=== PATIENT | female | born 1945 | race Caucasian/White ===

== ENCOUNTER 2017-09-11 20:54 | Inpatient (IN) | payer MEDICARE ==
[~2017-09-11] VITALS: Ht 162.6 cm; Wt 67.9 kg
[~2017-09-11 20:54] MED LIST: ASPI-1197 PO; BUSP5TAB3 PO; DONE10TA43 PO; ERGO400T7 PO; FOLI1TAB15 PO; LOSA25TA21 PO; MEMA10TA20 PO; MULT-1203 PO; NICO2GUM35 BC; THIAM100TB PO; TRAZ-144 PO
[2017-09-11 21:27] LABS: BASOPHILS % (AUTO) 0.5 % (0.0-5.0); HEMATOCRIT 24.8 % (36-48); LYMPHOCYTES % (AUTO) 28.2 % (21.0-51.0); MEAN CORPUSCULAR HGB CONC 34.2 g/dL (32.0-36.0); MEAN CORPUSCULAR VOLUME 99.5 fL (79-99); MONOCYTES % (AUTO) 7.3 % (3.0-13.0); PLATELET COUNT (AUTO) 249 K/uL (130-400); RED BLOOD CELL COUNT(AUTO) 2.49 MIL/uL (4.00-5.50); WHITE BLOOD COUNT (AUTO) 8.3 K/uL (4.8-10.8)
[2017-09-11 21:38] LABS: CREATININE 0.7 mg/dL (0.5-1.5); POTASSIUM 3.7 mmol/L (3.5-5.1)
[2017-09-11 21:39] LABS: INR 1.48 (0.85-1.15); PARTIAL THROMBOPLASTIN TIME 33.8 SEC (26.3-35.5); PROTHROMBIN TIME 15.4 SEC (9.6-11.6)
[2017-09-11 21:51] LABS: BILIRUBIN,TOTAL 0.3 mg/dL (0.2-1.0); CREATINE KINASE MB 0.9 ng/mL (0.5-3.6); TOTAL PROTEIN, SERUM 5.9 g/dL (6.0-8.3)
[2017-09-11] MEDS ORDERED: TRAMADOL HCL 50 MG TABLET ONE (23:38)
[2017-09-11] MEDS ORDERED: ASPIRIN 325 MG TABLET ONE (23:38)
[2017-09-11] MEDS ORDERED: VANCOMYCIN 1GM+NS 250ML 250 ML IV ONE (23:42)
[2017-09-11] MEDS ORDERED: ZOSYN 3.375GM+NS 50ML 50 ML IV ONE (23:42)
[2017-09-12] MEDS ORDERED: IPRATROPIUM/ALBUTEROL SULFATE 3 ML SOLUTION IH ONE (01:09)
[2017-09-12] MEDS ORDERED: LORAZEPAM 2 MG/ML 1 ML VIAL IM ONE (03:15)
[2017-09-12] MEDS ORDERED: ZOLPIDEM TARTRATE 5 MG TAB PO PRN (03:15)
[2017-09-12] MEDS ORDERED: ONDANSETRON HCL 4 MG/2 ML VIAL IV PRN (03:15)
[2017-09-12] MEDS ORDERED: METHYLPREDNISOLONE SOD SUCC 125MG/2ML VIAL IV SCH (03:15)
[2017-09-12] MEDS ORDERED: HYDRALAZINE HCL 20 MG/ML VIAL IV PRN (03:15)
[2017-09-12] MEDS: LEVOFLOXACIN 500 MG/D5W 100 ML 100 ML IV SCH (04:00)
[2017-09-12] MEDS ORDERED: METHYLPREDNISOLONE SOD SUCC 40MG/ML 1ML ONE (04:06)
[2017-09-12] MEDS ORDERED: LEVOFLOXACIN 500 MG/D5W 100 ML 100 ML ONE (04:06)
[2017-09-12] MEDS ORDERED: ACETAMINOPHEN-CODEINE 300/30MG TAB ONE (05:24)
[2017-09-12 05:54] LABS: BASOPHILS % (AUTO) 0.5 % (0.0-5.0); EOSINOPHILS % (AUTO) 2.1 % (0.0-8.0); LYMPHOCYTES % (AUTO) 15.5 % (21.0-51.0); MEAN CORPUSCULAR HEMOGLOBIN 33.4 pg (27.0-33.0); MEAN CORPUSCULAR HGB CONC 33.1 g/dL (32.0-36.0); MONOCYTES % (AUTO) 3.9 % (3.0-13.0); PLATELET COUNT (AUTO) 230 K/uL (130-400); RED BLOOD CELL COUNT(AUTO) 2.57 MIL/uL (4.00-5.50); WHITE BLOOD COUNT (AUTO) 7.8 K/uL (4.8-10.8)
[2017-09-12] MEDS ORDERED: IPRATROPIUM/ALBUTEROL SULFATE 3 ML SOLUTION IH SCH (06:00)
[2017-09-12 06:02] LABS: CREATININE 0.7 mg/dL (0.5-1.5); POTASSIUM 3.7 mmol/L (3.5-5.1)
[2017-09-12 07:55] VITALS: BP 125/73
[2017-09-12] MEDS ORDERED: SODIUM CHLORIDE 0.9% 250 ML IV ONE (09:42)
[2017-09-12] MEDS: ZOSYN 3.375GM+NS 50ML 50 ML IV SCH ×2 (09:44→17:13)
[2017-09-12] MEDS: PANTOPRAZOLE SODIUM 40 MG TABLET.DR PO SCH (09:45)
[2017-09-12] MEDS: ENOXAPARIN SODIUM 40 MG/0.4 ML SYRINGE SQ SCH (09:47)
[2017-09-12 11:00] VITALS: BP 113/63
[2017-09-12] MEDS: IPRATROPIUM/ALBUTEROL SULFATE 3 ML SOLUTION IH SCH ×3 (12:00→23:38)
[2017-09-12] MEDS: FLU VACC QS2017-18 36MOS UP/PF 60 MCG/0.5 ML ML IM SCH (12:56)
[2017-09-12] MEDS: TRAMADOL HCL 50 MG TABLET PO PRN ×2 (13:01→18:31)
[2017-09-12 16:00] VITALS: BP 103/62
[2017-09-12] MEDS ORDERED: DILT120T PO (18:56)
[2017-09-12] MEDS ORDERED: [UNRECOGNIZED DRUG - OTHER] PO (18:56)
[2017-09-12] MEDS ORDERED: ATOR40TA69 PO (18:56)
[2017-09-12] MEDS ORDERED: RIVA15TA PO (18:56)
[2017-09-12] MEDS ORDERED: MEMA5TAB15 PO (18:56)
[2017-09-12] MEDS ORDERED: LEVE750T4 PO (18:56)
[2017-09-12] MEDS ORDERED: ALPR0.5T PO (18:56)
[2017-09-12] MEDS ORDERED: OSELT15L PO (18:56)
[2017-09-12] MEDS ORDERED: ACET1TAB25 PO (18:56)
[2017-09-12] MEDS ORDERED: DONE5TAB33 PO (18:56)
[2017-09-12 20:00] VITALS: BP 124/78
[2017-09-13] VITALS: BP 117/66
[2017-09-13] MEDS: LEVOFLOXACIN 500 MG/D5W 100 ML 100 ML IV SCH (01:39)
[2017-09-13] MEDS ORDERED: TRAZODONE HCL 50 MG TAB PO PRN (02:00)
[2017-09-13] MEDS: ZOSYN 3.375GM+NS 50ML 50 ML IV SCH ×3 (02:54→16:30)
[2017-09-13 04:00] VITALS: BP 143/71
[2017-09-13] MEDS: TRAMADOL HCL 50 MG TABLET PO PRN ×3 (04:06→16:29)
[2017-09-13] MEDS: IPRATROPIUM/ALBUTEROL SULFATE 3 ML SOLUTION IH SCH ×4 (04:45→23:18)
[2017-09-13 07:30] VITALS: BP 109/54
[2017-09-13] MEDS: FLU VACC QS2017-18 36MOS UP/PF 60 MCG/0.5 ML ML IM SCH (07:39)
[2017-09-13] MEDS: DILTIAZEM HCL 120 MG CAP.SR.24H PO SCH (08:27)
[2017-09-13] MEDS: THIAMINE HCL 100 MG TABLET PO SCH (08:29)
[2017-09-13] MEDS: PANTOPRAZOLE SODIUM 40 MG TABLET.DR PO SCH (08:29)
[2017-09-13] MEDS: ASPIRIN 81MG TAB.CHEW PO SCH (08:29)
[2017-09-13] MEDS: ENOXAPARIN SODIUM 40 MG/0.4 ML SYRINGE SQ SCH (08:30)
[2017-09-13] MEDS: DONEPEZIL HCL 5 MG TAB PO SCH (08:37)
[2017-09-13] MEDS: MEMANTINE HCL 5 MG TABLET PO SCH ×2 (08:37→21:00)
[2017-09-13] MEDS: LEVETIRACETAM 500 MG TABLET PO SCH ×2 (08:37→21:00)
[2017-09-13] MEDS: OSELTAMIVIR PHOSPHATE 75 MG CAP PO SCH (08:38)
[2017-09-13] MEDS ORDERED: RIVAROXABAN 15 MG TABLET PO SCH (09:00)
[2017-09-13 11:00] VITALS: BP 116/42
[2017-09-13] MEDS: ALPRAZOLAM 0.5 MG TABLET PO PRN (14:51)
[2017-09-13] MEDS: NYSTATIN 15 GM POWDER TP SCH (14:54)
[2017-09-13 16:00] VITALS: BP 138/75
[2017-09-13] MEDS: ACETAMINOPHEN 325 MG TAB PO PRN (18:43)
[2017-09-13] MEDS ORDERED: KETOROLAC TROMETHAMINE 30MG/ML IV SCH (19:30)
[2017-09-13] MEDS: QUETIAPINE FUMARATE 25 MG TAB PO SCH (19:50)
[2017-09-13] MEDS: RIVAROXABAN 15 MG TABLET PO SCH (19:59)
[2017-09-13] MEDS: ATORVASTATIN CALCIUM 40 MG TABLET PO SCH (19:59)
[2017-09-13 20:00] VITALS: BP 151/77
[2017-09-14] VITALS: BP 91/57
[2017-09-14] MEDS: ZOSYN 3.375GM+NS 50ML 50 ML IV SCH ×3 (00:51→17:20)
[2017-09-14] MEDS: LEVOFLOXACIN 500 MG/D5W 100 ML 100 ML IV SCH (03:38)
[2017-09-14 04:00] VITALS: BP 135/71
[2017-09-14] MEDS: TRAMADOL HCL 50 MG TABLET PO PRN ×3 (04:30→20:14)
[2017-09-14] MEDS: IPRATROPIUM/ALBUTEROL SULFATE 3 ML SOLUTION IH SCH ×4 (04:48→22:58)
[2017-09-14 07:30] VITALS: BP_SYST 111; BP_SYST 115; BP_DIAS 65; BP_DIAS 66
[2017-09-14] MEDS: LEVETIRACETAM 500 MG TABLET PO SCH ×2 (08:37→21:00)
[2017-09-14] MEDS: THIAMINE HCL 100 MG TABLET PO SCH (08:38)
[2017-09-14] MEDS: ASPIRIN 81MG TAB.CHEW PO SCH (08:38)
[2017-09-14] MEDS: OSELTAMIVIR PHOSPHATE 75 MG CAP PO SCH (08:38)
[2017-09-14] MEDS: DILTIAZEM HCL 120 MG CAP.SR.24H PO SCH (08:39)
[2017-09-14] MEDS: MEMANTINE HCL 5 MG TABLET PO SCH ×2 (08:39→20:13)
[2017-09-14] MEDS: PANTOPRAZOLE SODIUM 40 MG TABLET.DR PO SCH (08:39)
[2017-09-14] MEDS: ACETAMINOPHEN-CODEINE 300/30MG TAB PO PRN ×2 (08:40→17:29)
[2017-09-14] MEDS: DONEPEZIL HCL 5 MG TAB PO SCH (08:53)
[2017-09-14 11:00] VITALS: BP 109/75
[2017-09-14] MEDS: RIVAROXABAN 15 MG TABLET PO SCH ×2 (11:28→20:13)
[2017-09-14] MEDS: FLU VACC QS2017-18 36MOS UP/PF 60 MCG/0.5 ML ML IM SCH (13:00)
[2017-09-14 16:00] VITALS: BP 115/66
[2017-09-14] MEDS: NYSTATIN 15 GM POWDER TP SCH (17:31)
[2017-09-14 20:00] VITALS: BP 91/57
[2017-09-14] MEDS: QUETIAPINE FUMARATE 25 MG TAB PO SCH (20:13)
[2017-09-14] MEDS: ATORVASTATIN CALCIUM 40 MG TABLET PO SCH (21:00)
[2017-09-15] VITALS (7 sets, daily range): BP systolic 94–142; BP diastolic 57–89
[2017-09-15] MEDS: ZOSYN 3.375GM+NS 50ML 50 ML IV SCH ×3 (00:54→17:14)
[2017-09-15] MEDS: NYSTATIN 15 GM POWDER TP SCH ×3 (00:54→21:03)
[2017-09-15] MEDS: IPRATROPIUM/ALBUTEROL SULFATE 3 ML SOLUTION IH SCH ×3 (04:43→16:29)
[2017-09-15 05:06] LABS: HEMATOCRIT 24.5 % (36-48); MEAN CORPUSCULAR HEMOGLOBIN 31.7 pg (27.0-33.0); MEAN CORPUSCULAR HGB CONC 32.2 g/dL (32.0-36.0); MEAN CORPUSCULAR VOLUME 98.4 fL (79-99); NUCLEATED RED BLOOD CELLS 0.1 % (0.0-0.19); PLATELET COUNT (AUTO) 192 K/uL (130-400); RED BLOOD CELL COUNT(AUTO) 2.49 MIL/uL (4.00-5.50); RED CELL DISTRIBUTION WIDTH 15.7 % (11.0-15.5); WHITE BLOOD COUNT (AUTO) 6.9 K/uL (4.8-10.8)
[2017-09-15] MEDS: LEVOFLOXACIN 500 MG/D5W 100 ML 100 ML IV SCH (05:15)
[2017-09-15] MEDS: TRAMADOL HCL 50 MG TABLET PO PRN ×3 (05:17→17:14)
[2017-09-15 05:22] LABS: CREATININE 0.8 mg/dL (0.5-1.5); POTASSIUM 3.9 mmol/L (3.5-5.1)
[2017-09-15] MEDS: LEVETIRACETAM 500 MG TABLET PO SCH ×3 (08:59→21:03)
[2017-09-15] MEDS: DILTIAZEM HCL 120 MG CAP.SR.24H PO SCH (09:00)
[2017-09-15] MEDS: RIVAROXABAN 15 MG TABLET PO SCH ×2 (09:00→21:02)
[2017-09-15] MEDS: MEMANTINE HCL 5 MG TABLET PO SCH ×3 (09:00→21:00)
[2017-09-15] MEDS: THIAMINE HCL 100 MG TABLET PO SCH (09:00)
[2017-09-15] MEDS: ASPIRIN 81MG TAB.CHEW PO SCH (09:00)
[2017-09-15] MEDS: OSELTAMIVIR PHOSPHATE 75 MG CAP PO SCH (09:00)
[2017-09-15] MEDS: DONEPEZIL HCL 5 MG TAB PO SCH (09:00)
[2017-09-15] MEDS: PANTOPRAZOLE SODIUM 40 MG TABLET.DR PO SCH (09:01)
[2017-09-15] MEDS: ACETAMINOPHEN 325 MG TAB PO PRN (09:01)
[2017-09-15] MEDS: ALPRAZOLAM 0.5 MG TABLET PO PRN (10:58)
[2017-09-15] MEDS: ATORVASTATIN CALCIUM 40 MG TABLET PO SCH (21:02)
[2017-09-15] MEDS: QUETIAPINE FUMARATE 25 MG TAB PO SCH (21:02)
[2017-09-16] MEDS: IPRATROPIUM/ALBUTEROL SULFATE 3 ML SOLUTION IH SCH ×3 (00:44→12:06)
[2017-09-16] MEDS: ZOSYN 3.375GM+NS 50ML 50 ML IV SCH ×2 (01:50→09:35)
[2017-09-16 03:40] VITALS: BP 94/57
[2017-09-16] MEDS: LEVOFLOXACIN 500 MG/D5W 100 ML 100 ML IV SCH (05:50)
[2017-09-16] MEDS: TRAMADOL HCL 50 MG TABLET PO PRN ×2 (06:00→13:51)
[2017-09-16 07:37] VITALS: BP 122/76
[2017-09-16] MEDS: MEMANTINE HCL 5 MG TABLET PO SCH (09:00)
[2017-09-16] MEDS: DONEPEZIL HCL 5 MG TAB PO SCH (09:00)
[2017-09-16] MEDS: LEVETIRACETAM 500 MG TABLET PO SCH (09:00)
[2017-09-16] MEDS: ALPRAZOLAM 0.5 MG TABLET PO PRN (09:35)
[2017-09-16] MEDS: THIAMINE HCL 100 MG TABLET PO SCH (09:36)
[2017-09-16] MEDS: ASPIRIN 81MG TAB.CHEW PO SCH (09:36)
[2017-09-16] MEDS: PANTOPRAZOLE SODIUM 40 MG TABLET.DR PO SCH (09:36)
[2017-09-16] MEDS: OSELTAMIVIR PHOSPHATE 75 MG CAP PO SCH (09:36)
[2017-09-16] MEDS: RIVAROXABAN 15 MG TABLET PO SCH (09:36)
[2017-09-16] MEDS: DILTIAZEM HCL 120 MG CAP.SR.24H PO SCH (09:37)
[2017-09-16] MEDS: FLU VACC QS2017-18 36MOS UP/PF 60 MCG/0.5 ML ML IM SCH (09:45)
[2017-09-16 11:43] VITALS: BP 111/67
[2017-09-16 16:00] VITALS: BP 144/80
[2018-02-17] MEDS ORDERED: ALPR2TAB7 PO (18:02)
[2018-02-17] MEDS ORDERED: VARE1TAB22 PO (18:02)
[2018-02-17] MEDS ORDERED: LORA2TAB2 PO (18:02)
[2018-02-17] MEDS ORDERED: VENL100T4 PO (18:02)
== END 2017-09-16 16:30 | DRG 178 ==
LOC: EDH 20:54 → EDHIP 22:57 → 4AH 09-12 08:27 → 4BH 09-13 18:18
PROVIDERS: ADMIT Family Medicine; ATTEND Family Medicine
DX: J69.0 Pneumonitis due to inhalation of food and vomit (principal); J90 Pleural effusion, not elsewhere classified; G40.909 Epilepsy, unspecified, not intractable, without status epilepticus; F03.90 Unspecified dementia, unspecified severity, without behavioral disturbance, psychotic disturbance, mood disturbance, and anxiety; E78.5 Hyperlipidemia, unspecified; I10 Essential (primary) hypertension; R41.89 Other symptoms and signs involving cognitive functions and awareness; F31.9 Bipolar disorder, unspecified; F41.9 Anxiety disorder, unspecified; R79.1 Abnormal coagulation profile; Z96.642 Presence of left artificial hip joint; Z87.891 Personal history of nicotine dependence; Z88.8 Allergy status to other drugs, medicaments and biological substances; Z91.013 Allergy to seafood
CPT/HCPCS: 36415; 71010; 71045; 78582; 80048; 80053; 82550; 82553; 83874; 83880; 84484; 85025; 85027; 85378; 85610; 85730; 92610; 93005; 93971; 94640; 94664; A9540; A9558; J1650; J1885; J1956; J2543; J2920; J3370; J7030

== ENCOUNTER 2017-09-18 00:07 | Emergency (ER) | payer MEDICARE ==
[~2017-09-18 00:07] MED LIST changes: +ACET1TAB25 PO; +ALPR0.5T PO; +ATOR40TA69 PO; -BUSP5TAB3 PO; +DILT120T PO; -DONE10TA43 PO; +DONE5TAB33 PO; -ERGO400T7 PO; -FOLI1TAB15 PO; +LEVE750T4 PO; -LOSA25TA21 PO; -MEMA10TA20 PO; +MEMA5TAB15 PO; -MULT-1203 PO; -NICO2GUM35 BC; +OSELT15L PO; +RIVA15TA PO; +[UNRECOGNIZED DRUG - OTHER] PO
[2017-09-18] MEDS ORDERED: ONDANSETRON HCL 4 MG/2 ML VIAL ONE (00:23)
[2017-09-18] MEDS ORDERED: MORPHINE SULFATE 2 MG/ML 1ML SYG ONE (00:24)
[2017-09-18 00:35] LABS: BASOPHILS % (AUTO) 0.7 % (0.0-5.0); EOSINOPHILS % (AUTO) 3.7 % (0.0-8.0); HEMATOCRIT 26.1 % (36-48); LYMPHOCYTES % (AUTO) 19.9 % (21.0-51.0); MEAN CORPUSCULAR HEMOGLOBIN 30.9 pg (27.0-33.0); MEAN CORPUSCULAR HGB CONC 31.9 g/dL (32.0-36.0); MEAN CORPUSCULAR VOLUME 96.9 fL (79-99); MONOCYTES % (AUTO) 6.2 % (3.0-13.0); NEUTROPHILS % (AUTO) 69.5 % (40.0-77.0); PLATELET COUNT (AUTO) 278 K/uL (130-400); RED BLOOD CELL COUNT(AUTO) 2.69 MIL/uL (4.00-5.50); RED CELL DISTRIBUTION WIDTH 15.7 % (11.0-15.5); WHITE BLOOD COUNT (AUTO) 8.6 K/uL (4.8-10.8)
[2017-09-18 00:46] LABS: CARBON DIOXIDE 24 mmol/L (21-32); CHLORIDE 107 mmol/L (101-111); CREATININE 0.9 mg/dL (0.5-1.5); GLOMERULAR FILTR. RATE CALC 66 mL/min (>60); GLUCOSE,RANDOM 131 mg/dL (70-105); POTASSIUM 3.5 mmol/L (3.5-5.1); SODIUM SERUM 142 mmol/L (136-145); UREA NITROGEN, BLOOD 12 mg/dL (7-18)
[2017-09-18 01:02] LABS: ALANINE AMINOTRANSFERASE 18 U/L (12-78); ASPARTATE AMINOTRANSFERASE 10 U/L (10-37); BILIRUBIN,TOTAL 0.4 mg/dL (0.2-1.0); CREATINE KINASE MB 0.9 ng/mL (0.5-3.6); CREATINE KINASE, TOTAL 31 U/L (21-232); MYOGLOBIN 31 ng/mL (10-92); TOTAL PROTEIN, SERUM 6.2 g/dL (6.0-8.3); TROPONIN I < 0.04 ng/mL (0.00-0.06)
[2017-09-18] MEDS ORDERED: DIPHENHYDRAMINE HCL 25 MG CAPSULE ONE (02:30)
[2017-09-18] MEDS ORDERED: LORAZEPAM 2 MG/ML 1 ML VIAL ONE (14:45)
[2017-09-18] MEDS ORDERED: HALOPERIDOL LACTATE 5 MG/ML VIAL ONE (14:45)
[2018-02-17] MEDS ORDERED: ALPR2TAB7 PO (18:02)
[2018-02-17] MEDS ORDERED: LORA2TAB2 PO (18:02)
[2018-02-17] MEDS ORDERED: VENL100T4 PO (18:02)
[2018-02-17] MEDS ORDERED: VARE1TAB22 PO (18:02)
== END 2017-09-18 14:55 | disposition home or self-care (01) ==
LOC: EDH 00:07
DX: R07.89 Other chest pain (principal); R06.00 Dyspnea, unspecified; M25.552 Pain in left hip; I10 Essential (primary) hypertension; E78.5 Hyperlipidemia, unspecified; F19.10 Other psychoactive substance abuse, uncomplicated; Z88.8 Allergy status to other drugs, medicaments and biological substances; Z98.890 Other specified postprocedural states; Z91.041 Radiographic dye allergy status; Z91.013 Allergy to seafood; Z95.0 Presence of cardiac pacemaker
CPT/HCPCS: 36415; 71045; 73502; 80053; 82550; 82553; 83874; 84484 ×2; 85025; 93005 ×2; 96374; 96375; 99291; J2405; Q0163; J1630; J2060

== ENCOUNTER 2017-10-07 14:46 | Inpatient (IN) | payer MEDICARE ==
[~2017-10-07] VITALS: Ht 162.6 cm; Wt 66.6 kg
[2017-10-07 15:14] LABS: BASOPHILS % (AUTO) 0.5 % (0.0-5.0); EOSINOPHILS % (AUTO) 2.8 % (0.0-8.0); HEMATOCRIT 23.7 % (36-48); LYMPHOCYTES % (AUTO) 24.6 % (21.0-51.0); MEAN CORPUSCULAR HEMOGLOBIN 28.8 pg (27.0-33.0); MEAN CORPUSCULAR HGB CONC 31.9 g/dL (32.0-36.0); MEAN CORPUSCULAR VOLUME 90.4 fL (79-99); NEUTROPHILS % (AUTO) 64.1 % (40.0-77.0); PLATELET COUNT (AUTO) 263 K/uL (130-400); RED BLOOD CELL COUNT(AUTO) 2.62 MIL/uL (4.00-5.50); RED CELL DISTRIBUTION WIDTH 17.2 % (11.0-15.5); WHITE BLOOD COUNT (AUTO) 6.8 K/uL (4.8-10.8)
[2017-10-07] MEDS ORDERED: IPRATROPIUM/ALBUTEROL SULFATE 3 ML SOLUTION IH ONE (15:19)
[2017-10-07 15:24] LABS: CREATININE 0.7 mg/dL (0.5-1.5); POTASSIUM 3.8 mmol/L (3.5-5.1)
[2017-10-07 15:37] LABS: ALBUMIN 3.4 g/dL (3.5-5.0); BILIRUBIN,TOTAL 0.3 mg/dL (0.2-1.0); TOTAL PROTEIN, SERUM 6.2 g/dL (6.0-8.3)
[2017-10-07 16:08] LABS: CREATINE KINASE MB 1.1 ng/mL (0.5-3.6)
[2017-10-07] MEDS ORDERED: HYDROCODONE/ACETAMINOPHEN 10/325 MG TAB ONE (16:18)
[2017-10-07] MEDS ORDERED: FUROSEMIDE 10 MG/ML 4ML VIAL ONE (19:55)
[2017-10-07 20:28] LABS: APPEARANCE,URINE Clear (CLEAR); BILIRUBIN,URINE Negative (NEGATIVE); COLOR,URINE Yellow (YELLOW); GLUCOSE, URINE (UA) Negative (NEGATIVE); KETONES,URINE Negative (NEGATIVE); LEUKOCYTE ESTERASE ,URINE Trace (NEGATIVE); NITRATE,URINE Negative (NEGATIVE); OCCULT BLOOD,URINE Negative (NEGATIVE); PROTEIN,URINE Negative (NEGATIVE); UROBILINOGEN,URINE 0.2 mg/dL (0.2-1.0)
[2017-10-07 20:38] LABS: BACTERIA,URINE Rare /HPF (None Seen); RBC,URINE 0-1 /HPF (0-1); SQUAMOUS EPITHELIAL CELL,UR Few /LPF (0-2)
[2017-10-07] MEDS ORDERED: LORAZEPAM 2 MG/ML 1 ML VIAL IM ONE (23:00)
[2017-10-07] MEDS ORDERED: ACETAMINOPHEN 325 MG TAB PO PRN (23:00)
[2017-10-07] MEDS ORDERED: HYDRALAZINE HCL 20 MG/ML VIAL IV PRN (23:00)
[2017-10-07] MEDS ORDERED: ONDANSETRON HCL 4 MG/2 ML VIAL IV PRN (23:00)
[2017-10-07] MEDS ORDERED: ZOLPIDEM TARTRATE 5 MG TAB PO PRN (23:00)
[2017-10-07] MEDS ORDERED: LORAZEPAM 2 MG/ML 1 ML VIAL ONE (23:17)
[2017-10-08 01:00] VITALS: BP 155/75
[2017-10-08] MEDS: IPRATROPIUM/ALBUTEROL SULFATE 3 ML SOLUTION IH SCH ×6 (03:16→22:08)
[2017-10-08 04:00] VITALS: BP 122/53
[2017-10-08 05:10] LABS: BASOPHILS % (AUTO) 0.8 % (0.0-5.0); EOSINOPHILS % (AUTO) 4.6 % (0.0-8.0); HEMATOCRIT 21.2 % (36-48); LYMPHOCYTES % (AUTO) 31.2 % (21.0-51.0); MEAN CORPUSCULAR HEMOGLOBIN 29.5 pg (27.0-33.0); MEAN CORPUSCULAR HGB CONC 32.9 g/dL (32.0-36.0); MEAN CORPUSCULAR VOLUME 89.6 fL (79-99); MONOCYTES % (AUTO) 10.6 % (3.0-13.0); NEUTROPHILS % (AUTO) 52.8 % (40.0-77.0); PLATELET COUNT (AUTO) 230 K/uL (130-400); RED BLOOD CELL COUNT(AUTO) 2.36 MIL/uL (4.00-5.50); RED CELL DISTRIBUTION WIDTH 17.2 % (11.0-15.5); WHITE BLOOD COUNT (AUTO) 5.4 K/uL (4.8-10.8)
[2017-10-08 05:22] LABS: CREATININE 0.6 mg/dL (0.5-1.5); POTASSIUM 3.3 mmol/L (3.5-5.1)
[2017-10-08 05:33] LABS: B-TYPE NATRIURETIC PEPTIDE 98 pg/mL (0-100)
[2017-10-08 08:00] VITALS: BP 125/69
[2017-10-08] MEDS: THIAMINE HCL 100 MG TABLET PO SCH (08:45)
[2017-10-08] MEDS: DONEPEZIL HCL 5 MG TAB PO SCH (08:46)
[2017-10-08] MEDS: DILTIAZEM HCL 120 MG CAP.SR.24H PO SCH (08:46)
[2017-10-08] MEDS: MEMANTINE HCL 5 MG TABLET PO SCH ×2 (08:46→20:16)
[2017-10-08] MEDS: FAMOTIDINE 20MG TAB 20 MG TAB PO SCH ×2 (08:46→20:16)
[2017-10-08] MEDS: ACETAMINOPHEN-CODEINE 300/30MG TAB PO PRN (08:46)
[2017-10-08] MEDS: LEVETIRACETAM 250 MG TABLET PO SCH ×2 (08:47→20:15)
[2017-10-08] MEDS: ALPRAZOLAM 0.5 MG TABLET PO PRN (08:49)
[2017-10-08] MEDS ORDERED: RIVAROXABAN 15 MG TABLET PO SCH (09:00)
[2017-10-08] MEDS ORDERED: ASPIRIN 81MG TAB.CHEW PO SCH (09:00)
[2017-10-08] MEDS ORDERED: POTASSIUM CHLORIDE 20MEQ/100ML 100 ML IV PRN (10:15)
[2017-10-08] MEDS ORDERED: LIDOCAINE HCL-MPF 1% 2ML VIAL IVP PRN (10:15)
[2017-10-08] MEDS ORDERED: POTASSIUM CHLORIDE 10% ELIXIR 20 MEQ/15 ML UDCUP PO PRN (10:15)
[2017-10-08] MEDS ORDERED: LORAZEPAM 2 MG/ML 1 ML VIAL IM PRN (10:15)
[2017-10-08] MEDS: LORAZEPAM 2 MG/ML 1 ML VIAL IVP PRN ×2 (11:12→22:24)
[2017-10-08 11:18] VITALS: BP 129/63
[2017-10-08] MEDS ORDERED: SODIUM CHLORIDE 0.9% 250 ML IV ONE (14:30)
[2017-10-08 16:00] VITALS: BP 112/54
[2017-10-08] MEDS: POTASSIUM CHLORIDE 20 MEQ ERTAB PO PRN ×3 (18:24→22:23)
[2017-10-08 19:57] VITALS: BP 133/69
[2017-10-08] MEDS: ATORVASTATIN CALCIUM 40 MG TABLET PO SCH (20:15)
[2017-10-08] MEDS: TRAZODONE HCL 50 MG TAB PO PRN (20:15)
[2017-10-09] MEDS: IPRATROPIUM/ALBUTEROL SULFATE 3 ML SOLUTION IH SCH ×6 (01:35→22:02)
[2017-10-09 05:26] LABS: HEMATOCRIT 24.2 % (36-48); MEAN CORPUSCULAR HEMOGLOBIN 27.2 pg (27.0-33.0); MEAN CORPUSCULAR HGB CONC 31.4 g/dL (32.0-36.0); MEAN CORPUSCULAR VOLUME 86.7 fL (79-99); PLATELET COUNT (AUTO) 234 K/uL (130-400); RED CELL DISTRIBUTION WIDTH 18.8 % (11.0-15.5); WHITE BLOOD COUNT (AUTO) 7.2 K/uL (4.8-10.8)
[2017-10-09 05:38] LABS: CREATININE 0.6 mg/dL (0.5-1.5); POTASSIUM 4.2 mmol/L (3.5-5.1)
[2017-10-09 06:19] VITALS: BP 116/57
[2017-10-09 07:30] VITALS: BP 131/74
[2017-10-09] MEDS: MEMANTINE HCL 5 MG TABLET PO SCH ×2 (08:36→22:39)
[2017-10-09] MEDS: LORAZEPAM 2 MG/ML 1 ML VIAL IVP PRN ×2 (08:36→17:19)
[2017-10-09] MEDS: FAMOTIDINE 20MG TAB 20 MG TAB PO SCH ×2 (08:36→22:39)
[2017-10-09] MEDS: DONEPEZIL HCL 5 MG TAB PO SCH (08:36)
[2017-10-09] MEDS: LEVETIRACETAM 250 MG TABLET PO SCH ×2 (08:36→22:39)
[2017-10-09] MEDS: THIAMINE HCL 100 MG TABLET PO SCH (08:36)
[2017-10-09] MEDS: DILTIAZEM HCL 120 MG CAP.SR.24H PO SCH (08:37)
[2017-10-09] MEDS: ACETAMINOPHEN-CODEINE 300/30MG TAB PO PRN (10:56)
[2017-10-09] MEDS: CYANOCOBALAMIN (VITAMIN B-12) 100 MCG TABLET PO SCH (10:56)
[2017-10-09] MEDS: ALPRAZOLAM 0.5 MG TABLET PO PRN (15:33)
[2017-10-09 16:00] VITALS: BP 111/55
[2017-10-09 20:00] VITALS: BP 101/59
[2017-10-09] MEDS: ATORVASTATIN CALCIUM 40 MG TABLET PO SCH (22:39)
[2017-10-09 23:44] VITALS: BP_SYST 118; BP_SYST 174; BP_DIAS 58; BP_DIAS 72
[2017-10-10] VITALS (21 sets, daily range): BP systolic 102–172; BP diastolic 58–87
[2017-10-10] MEDS: LORAZEPAM 2 MG/ML 1 ML VIAL IVP PRN ×3 (01:16→18:29)
[2017-10-10] MEDS: IPRATROPIUM/ALBUTEROL SULFATE 3 ML SOLUTION IH SCH ×6 (01:44→22:42)
[2017-10-10] MEDS: ACETAMINOPHEN-CODEINE 300/30MG TAB PO PRN ×2 (06:29→12:30)
[2017-10-10] MEDS: CYANOCOBALAMIN (VITAMIN B-12) 100 MCG TABLET PO SCH (09:00)
[2017-10-10] MEDS: DONEPEZIL HCL 5 MG TAB PO SCH (09:01)
[2017-10-10] MEDS: CYANOCOBALAMIN (VITAMIN B-12) 1000 MCG/ML 1ML VIAL IM SCH (09:01)
[2017-10-10] MEDS: FAMOTIDINE 20MG TAB 20 MG TAB PO SCH ×2 (09:01→20:28)
[2017-10-10] MEDS: LEVETIRACETAM 250 MG TABLET PO SCH ×2 (09:01→20:28)
[2017-10-10] MEDS: THIAMINE HCL 100 MG TABLET PO SCH (09:01)
[2017-10-10] MEDS: DILTIAZEM HCL 120 MG CAP.SR.24H PO SCH (09:01)
[2017-10-10] MEDS: MEMANTINE HCL 5 MG TABLET PO SCH ×2 (09:01→20:27)
[2017-10-10 10:24] LABS: BASOPHILS % (AUTO) 0.6 % (0.0-5.0); EOSINOPHILS % (AUTO) 5.1 % (0.0-8.0); HEMATOCRIT 25.2 % (36-48); LYMPHOCYTES % (AUTO) 21.3 % (21.0-51.0); MEAN CORPUSCULAR HEMOGLOBIN 28.3 pg (27.0-33.0); MEAN CORPUSCULAR HGB CONC 32.4 g/dL (32.0-36.0); MEAN CORPUSCULAR VOLUME 87.3 fL (79-99); MONOCYTES % (AUTO) 8.2 % (3.0-13.0); NEUTROPHILS % (AUTO) 64.8 % (40.0-77.0); PLATELET COUNT (AUTO) 243 K/uL (130-400); RED BLOOD CELL COUNT(AUTO) 2.89 MIL/uL (4.00-5.50); RED CELL DISTRIBUTION WIDTH 18.6 % (11.0-15.5); WHITE BLOOD COUNT (AUTO) 7.7 K/uL (4.8-10.8)
[2017-10-10 10:29] LABS: CREATININE 0.7 mg/dL (0.5-1.5); POTASSIUM 4.5 mmol/L (3.5-5.1)
[2017-10-10] MEDS: MORPHINE SULFATE 2 MG/ML 1ML SYG IVP PRN (13:06)
[2017-10-10] MEDS ORDERED: GLYCOPYRROLATE 0.2 MG/ML 5 ML VIAL ONE (14:49)
[2017-10-10] MEDS ORDERED: FENTANYL CITRATE PF 50 MCG/1 ML 2ML VIAL ONE (14:49)
[2017-10-10] MEDS ORDERED: PROPOFOL 10 MG/ML 20ML VIAL IV ONE (14:49)
[2017-10-10] MEDS ORDERED: BISACODYL 5 MG TABLET.DR PO SCH (16:00)
[2017-10-10] MEDS ORDERED: MAGNESIUM CITRATE 296 ML SOLUTION PO SCH (16:00)
[2017-10-10] MEDS ORDERED: PEG 3350/NA SULF,BICARB,CL/KCL 4000 ML SOLN PO SCH (16:00)
[2017-10-10] MEDS ORDERED: LACTULOSE 20 GM/30 ML UDCUP PO SCH (16:30)
[2017-10-10] MEDS: ATORVASTATIN CALCIUM 40 MG TABLET PO SCH (20:27)
[2017-10-10] MEDS: TRAZODONE HCL 50 MG TAB PO PRN (21:53)
[2017-10-11] VITALS (18 sets, daily range): BP systolic 91–145; BP diastolic 44–83
[2017-10-11] MEDS: IPRATROPIUM/ALBUTEROL SULFATE 3 ML SOLUTION IH SCH ×6 (02:15→23:04)
[2017-10-11] MEDS: LORAZEPAM 2 MG/ML 1 ML VIAL IVP PRN ×2 (02:47→12:52)
[2017-10-11 05:23] LABS: BASOPHILS % (AUTO) 0.7 % (0.0-5.0); HEMATOCRIT 26.5 % (36-48); LYMPHOCYTES % (AUTO) 18.5 % (21.0-51.0); MEAN CORPUSCULAR HEMOGLOBIN 27.4 pg (27.0-33.0); MEAN CORPUSCULAR HGB CONC 31.8 g/dL (32.0-36.0); MEAN CORPUSCULAR VOLUME 86.1 fL (79-99); MONOCYTES % (AUTO) 8.5 % (3.0-13.0); NEUTROPHILS % (AUTO) 67.3 % (40.0-77.0); PLATELET COUNT (AUTO) 267 K/uL (130-400); RED BLOOD CELL COUNT(AUTO) 3.08 MIL/uL (4.00-5.50); RED CELL DISTRIBUTION WIDTH 18.6 % (11.0-15.5); WHITE BLOOD COUNT (AUTO) 8.7 K/uL (4.8-10.8)
[2017-10-11 05:30] LABS: CREATININE 0.7 mg/dL (0.5-1.5); POTASSIUM 3.5 mmol/L (3.5-5.1)
[2017-10-11] MEDS: MORPHINE SULFATE 2 MG/ML 1ML SYG IVP PRN (06:25)
[2017-10-11] MEDS: CYANOCOBALAMIN (VITAMIN B-12) 100 MCG TABLET PO SCH (09:00)
[2017-10-11] MEDS: MEMANTINE HCL 5 MG TABLET PO SCH ×2 (09:00→22:03)
[2017-10-11] MEDS: LEVETIRACETAM 250 MG TABLET PO SCH ×2 (09:00→22:03)
[2017-10-11] MEDS: CYANOCOBALAMIN (VITAMIN B-12) 1000 MCG/ML 1ML VIAL IM SCH (09:00)
[2017-10-11] MEDS: DONEPEZIL HCL 5 MG TAB PO SCH (09:00)
[2017-10-11] MEDS: DILTIAZEM HCL 120 MG CAP.SR.24H PO SCH (09:00)
[2017-10-11] MEDS: THIAMINE HCL 100 MG TABLET PO SCH (09:00)
[2017-10-11] MEDS: FAMOTIDINE 20MG TAB 20 MG TAB PO SCH ×2 (09:00→22:03)
[2017-10-11] MEDS: PANTOPRAZOLE SODIUM 40 MG TABLET.DR PO SCH (09:00)
[2017-10-11] MEDS ORDERED: PROPOFOL 10 MG/ML 20ML VIAL IV ONE (11:23)
[2017-10-11] MEDS ORDERED: TEMAZEPAM 30 MG CAP PO PRN (12:30)
[2017-10-11] MEDS: ALPRAZOLAM 0.5 MG TABLET PO PRN (16:22)
[2017-10-11] MEDS: ATORVASTATIN CALCIUM 40 MG TABLET PO SCH (22:03)
[2017-10-11] MEDS: ALPRAZOLAM 0.5 MG TABLET PO SCH (22:03)
[2017-10-11] MEDS: ACETAMINOPHEN-CODEINE 300/30MG TAB PO PRN (22:07)
[2017-10-12] MEDS: MORPHINE SULFATE 2 MG/ML 1ML SYG IVP PRN ×4 (00:09→21:59)
[2017-10-12 00:10] VITALS: BP 143/77
[2017-10-12] MEDS: IPRATROPIUM/ALBUTEROL SULFATE 3 ML SOLUTION IH SCH ×6 (02:10→21:43)
[2017-10-12 04:05] VITALS: BP 126/74
[2017-10-12] MEDS ORDERED: TRAZODONE HCL 50 MG TAB PO PRN (09:45)
[2017-10-12] MEDS: MEMANTINE HCL 5 MG TABLET PO SCH ×2 (09:49→20:39)
[2017-10-12] MEDS: CYANOCOBALAMIN (VITAMIN B-12) 100 MCG TABLET PO SCH (09:49)
[2017-10-12] MEDS: THIAMINE HCL 100 MG TABLET PO SCH (09:49)
[2017-10-12] MEDS: LEVETIRACETAM 250 MG TABLET PO SCH ×2 (09:49→20:39)
[2017-10-12] MEDS: ALPRAZOLAM 0.5 MG TABLET PO SCH ×2 (09:49→20:39)
[2017-10-12] MEDS: PANTOPRAZOLE SODIUM 40 MG TABLET.DR PO SCH (09:49)
[2017-10-12] MEDS: FAMOTIDINE 20MG TAB 20 MG TAB PO SCH ×2 (09:50→20:39)
[2017-10-12] MEDS: CYANOCOBALAMIN (VITAMIN B-12) 1000 MCG/ML 1ML VIAL IM SCH (09:50)
[2017-10-12] MEDS: DILTIAZEM HCL 120 MG CAP.SR.24H PO SCH (09:50)
[2017-10-12] MEDS: DONEPEZIL HCL 5 MG TAB PO SCH (09:51)
[2017-10-12] MEDS ORDERED: TRAZODONE HCL 100 MG TABLET PO PRN (10:15)
[2017-10-12 10:58] VITALS: BP 93/54
[2017-10-12] MEDS: LORAZEPAM 2 MG/ML 1 ML VIAL IVP PRN (12:51)
[2017-10-12 16:12] VITALS: BP 97/68
[2017-10-12] MEDS: ACETAMINOPHEN-CODEINE 300/30MG TAB PO PRN (18:21)
[2017-10-12 19:00] VITALS: BP 100/63
[2017-10-12] MEDS: DULOXETINE HCL 30 MG CAP PO SCH (20:39)
[2017-10-12] MEDS: ATORVASTATIN CALCIUM 40 MG TABLET PO SCH (20:39)
[2017-10-12 23:00] VITALS: BP 105/55
[2017-10-13 03:00] VITALS: BP 118/62
[2017-10-13] MEDS: IPRATROPIUM/ALBUTEROL SULFATE 3 ML SOLUTION IH SCH ×6 (03:02→22:54)
[2017-10-13] MEDS: ACETAMINOPHEN-CODEINE 300/30MG TAB PO PRN (03:22)
[2017-10-13 05:17] LABS: BASOPHILS % (AUTO) 1.3 % (0.0-5.0); EOSINOPHILS % (AUTO) 6.5 % (0.0-8.0); HEMATOCRIT 26.6 % (36-48); LYMPHOCYTES % (AUTO) 30.7 % (21.0-51.0); MEAN CORPUSCULAR HEMOGLOBIN 27.6 pg (27.0-33.0); MEAN CORPUSCULAR VOLUME 86.2 fL (79-99); MONOCYTES % (AUTO) 8.5 % (3.0-13.0); PLATELET COUNT (AUTO) 285 K/uL (130-400); RED BLOOD CELL COUNT(AUTO) 3.09 MIL/uL (4.00-5.50); RED CELL DISTRIBUTION WIDTH 18.1 % (11.0-15.5); WHITE BLOOD COUNT (AUTO) 7.3 K/uL (4.8-10.8)
[2017-10-13] MEDS: MORPHINE SULFATE 2 MG/ML 1ML SYG IVP PRN ×3 (05:49→22:11)
[2017-10-13 06:06] LABS: CREATININE 0.7 mg/dL (0.5-1.5); POTASSIUM 4.2 mmol/L (3.5-5.1)
[2017-10-13 07:23] VITALS: BP 97/67
[2017-10-13] MEDS: DILTIAZEM HCL 120 MG CAP.SR.24H PO SCH ×2 (09:00→10:15)
[2017-10-13] MEDS: PANTOPRAZOLE SODIUM 40 MG TABLET.DR PO SCH (10:14)
[2017-10-13] MEDS: FAMOTIDINE 20MG TAB 20 MG TAB PO SCH ×2 (10:14→20:30)
[2017-10-13] MEDS: LEVETIRACETAM 250 MG TABLET PO SCH ×2 (10:14→20:29)
[2017-10-13] MEDS: MEMANTINE HCL 5 MG TABLET PO SCH ×2 (10:14→20:30)
[2017-10-13] MEDS: CYANOCOBALAMIN (VITAMIN B-12) 100 MCG TABLET PO SCH (10:14)
[2017-10-13] MEDS: ALPRAZOLAM 0.5 MG TABLET PO SCH ×2 (10:14→20:30)
[2017-10-13] MEDS: DULOXETINE HCL 30 MG CAP PO SCH ×2 (10:15→20:30)
[2017-10-13] MEDS: THIAMINE HCL 100 MG TABLET PO SCH (10:15)
[2017-10-13] MEDS: DONEPEZIL HCL 5 MG TAB PO SCH (10:15)
[2017-10-13] MEDS: CYANOCOBALAMIN (VITAMIN B-12) 1000 MCG/ML 1ML VIAL IM SCH (10:16)
[2017-10-13 10:46] VITALS: BP 97/67
[2017-10-13 15:35] VITALS: BP 100/51
[2017-10-13 19:00] VITALS: BP 130/54
[2017-10-13] MEDS: ATORVASTATIN CALCIUM 40 MG TABLET PO SCH (20:30)
[2017-10-13 23:00] VITALS: BP 147/82
[2017-10-14] MEDS: IPRATROPIUM/ALBUTEROL SULFATE 3 ML SOLUTION IH SCH ×3 (02:42→10:00)
[2017-10-14 03:00] VITALS: BP 138/72
[2017-10-14 04:02] LABS: BASOPHILS % (AUTO) 1.1 % (0.0-5.0); EOSINOPHILS % (AUTO) 6.7 % (0.0-8.0); LYMPHOCYTES % (AUTO) 31.9 % (21.0-51.0); MEAN CORPUSCULAR HEMOGLOBIN 27.2 pg (27.0-33.0); MEAN CORPUSCULAR HGB CONC 31.6 g/dL (32.0-36.0); MONOCYTES % (AUTO) 8.6 % (3.0-13.0); NEUTROPHILS % (AUTO) 51.7 % (40.0-77.0); PLATELET COUNT (AUTO) 275 K/uL (130-400); RED BLOOD CELL COUNT(AUTO) 3.14 MIL/uL (4.00-5.50); RED CELL DISTRIBUTION WIDTH 17.8 % (11.0-15.5); WHITE BLOOD COUNT (AUTO) 7.5 K/uL (4.8-10.8)
[2017-10-14 04:18] LABS: CREATININE 0.6 mg/dL (0.5-1.5); POTASSIUM 4.1 mmol/L (3.5-5.1)
[2017-10-14] MEDS: MORPHINE SULFATE 2 MG/ML 1ML SYG IVP PRN ×2 (05:27→11:57)
[2017-10-14 08:00] VITALS: BP 103/63
[2017-10-14] MEDS: LEVETIRACETAM 250 MG TABLET PO SCH (10:01)
[2017-10-14] MEDS: CYANOCOBALAMIN (VITAMIN B-12) 100 MCG TABLET PO SCH (10:01)
[2017-10-14] MEDS: MEMANTINE HCL 5 MG TABLET PO SCH (10:01)
[2017-10-14] MEDS: ALPRAZOLAM 0.5 MG TABLET PO SCH (10:01)
[2017-10-14] MEDS: DONEPEZIL HCL 5 MG TAB PO SCH (10:01)
[2017-10-14] MEDS: THIAMINE HCL 100 MG TABLET PO SCH (10:01)
[2017-10-14] MEDS: PANTOPRAZOLE SODIUM 40 MG TABLET.DR PO SCH (10:01)
[2017-10-14] MEDS: FAMOTIDINE 20MG TAB 20 MG TAB PO SCH (10:01)
[2017-10-14] MEDS: DULOXETINE HCL 30 MG CAP PO SCH (10:01)
[2017-10-14] MEDS: DILTIAZEM HCL 120 MG CAP.SR.24H PO SCH (10:05)
[2017-10-14] MEDS: ACETAMINOPHEN-CODEINE 300/30MG TAB PO PRN (10:11)
[2017-10-14] MEDS: CYANOCOBALAMIN (VITAMIN B-12) 1000 MCG/ML 1ML VIAL IM SCH (10:11)
[2017-10-14 11:54] VITALS: BP 111/73
[2018-02-17] MEDS ORDERED: VARE1TAB22 PO (18:02)
[2018-02-17] MEDS ORDERED: LORA2TAB2 PO (18:02)
[2018-02-17] MEDS ORDERED: VENL100T4 PO (18:02)
[2018-02-17] MEDS ORDERED: ALPR2TAB7 PO (18:02)
== END 2017-10-14 17:40 | DRG 812 ==
LOC: EDH 14:46 → EDHIP 19:37 → 4CH 23:43
PROVIDERS: ADMIT Family Medicine; ATTEND Family Medicine
PROC: 30233N1 Transfusion of Nonautologous Red Blood Cells into Peripheral Vein, Percutaneous Approach (ICD-10-PCS; principal; 2017-10-07)
PROC: 0DBP8ZX Excision of Rectum, Via Natural or Artificial Opening Endoscopic, Diagnostic (ICD-10-PCS; 2017-10-07)
PROC: 0DB98ZX Excision of Duodenum, Via Natural or Artificial Opening Endoscopic, Diagnostic (ICD-10-PCS; 2017-10-10)
PROC: 0DB68ZX Excision of Stomach, Via Natural or Artificial Opening Endoscopic, Diagnostic (ICD-10-PCS; 2017-10-10)
PROC: 0DB58ZX Excision of Esophagus, Via Natural or Artificial Opening Endoscopic, Diagnostic (ICD-10-PCS; 2017-10-10)
DX: D53.9 Nutritional anemia, unspecified (principal); I11.0 Hypertensive heart disease with heart failure; D75.89 Other specified diseases of blood and blood-forming organs; I50.9 Heart failure, unspecified; D50.9 Iron deficiency anemia, unspecified; F19.10 Other psychoactive substance abuse, uncomplicated; E78.5 Hyperlipidemia, unspecified; F03.90 Unspecified dementia, unspecified severity, without behavioral disturbance, psychotic disturbance, mood disturbance, and anxiety; F31.9 Bipolar disorder, unspecified; F41.1 Generalized anxiety disorder; F60.7 Dependent personality disorder; G40.909 Epilepsy, unspecified, not intractable, without status epilepticus; G89.29 Other chronic pain; I25.10 Atherosclerotic heart disease of native coronary artery without angina pectoris; K57.30 Diverticulosis of large intestine without perforation or abscess without bleeding; K64.8 Other hemorrhoids; K29.00 Acute gastritis without bleeding; K21.0 Gastro-esophageal reflux disease with esophagitis; R19.5 Other fecal abnormalities; Z96.659 Presence of unspecified artificial knee joint; Z87.891 Personal history of nicotine dependence; Z88.8 Allergy status to other drugs, medicaments and biological substances; Z91.013 Allergy to seafood
CPT/HCPCS: 36415; 36430; 71045; 71250; 78580; 80048; 80053; 81001; 82270; 82550; 82553; 82746; 83880; 84132; 84484; 85025; 85027; 85378; 86677; 86850; 86900; 86901; 86922; 87633; 88305; 88312; 93005; 93306; 93971; 94640; 94664; 99291; A9540; J0360; J1940; J2060; J2704; J3010; J3420; J3480; J3490; J7030; P9016

== ENCOUNTER 2018-02-17 13:58 | Observation (INO) | payer OTHER, MEDICARE ==
[~2018-02-17] VITALS: Ht 162.6 cm; Wt 69.8 kg
[~2018-02-17 13:58] MED LIST changes: -TRAZ-144 PO; +TRAZ-185 PO
[2018-02-17 14:29] LABS: BASOPHILS % (AUTO) 0.6 % (0.0-5.0); CREATININE 0.7 mg/dL (0.5-1.5); EOSINOPHILS % (AUTO) 3.9 % (0.0-8.0); HEMATOCRIT 37.5 % (36-48); LYMPHOCYTES % (AUTO) 28.1 % (21.0-51.0); MEAN CORPUSCULAR HEMOGLOBIN 28.1 pg (27.0-33.0); MEAN CORPUSCULAR HGB CONC 32.9 g/dL (32.0-36.0); MEAN CORPUSCULAR VOLUME 85.5 fL (79-99); MONOCYTES % (AUTO) 6.4 % (3.0-13.0); PLATELET COUNT (AUTO) 217 K/uL (130-400); POTASSIUM 3.5 mmol/L (3.5-5.1); RED BLOOD CELL COUNT(AUTO) 4.39 MIL/uL (4.00-5.50); RED CELL DISTRIBUTION WIDTH 18.8 % (11.0-15.5); WHITE BLOOD COUNT (AUTO) 7.6 K/uL (4.8-10.8)
[2018-02-17 14:33] LABS: ALBUMIN 3.5 g/dL (3.5-5.0); BILIRUBIN,TOTAL 0.5 mg/dL (0.2-1.0); TOTAL PROTEIN, SERUM 6.2 g/dL (6.0-8.3)
[2018-02-17 17:55] VITALS: BP 153/81
[2018-02-17] MEDS ORDERED: ALPR2TAB7 PO ×2 (18:02)
[2018-02-17] MEDS ORDERED: VENL100T4 PO ×2 (18:02)
[2018-02-17] MEDS ORDERED: VARE1TAB22 PO ×2 (18:02)
[2018-02-17] MEDS ORDERED: LORA2TAB2 PO ×2 (18:02)
[2018-02-17 18:43] LABS: CREATINE KINASE MB 0.9 ng/mL (0.5-3.6); CREATINE KINASE, TOTAL 51 U/L (21-232); MYOGLOBIN 38 ng/mL (10-92); TROPONIN I < 0.04 ng/mL (0.00-0.06)
[2018-02-17 20:00] VITALS: BP 153/89
[2018-02-17] MEDS ORDERED: SODIUM CHLORIDE 0.9% 10 ML VIAL IVP PRN (20:15)
[2018-02-17] MEDS: CHANTIX 1MG PO SCH (21:00)
[2018-02-17] MEDS ORDERED: LORAZEPAM 1 MG TABLET PO SCH (21:00)
[2018-02-17] MEDS ORDERED: ALPRAZOLAM 1 MG TAB PO SCH (21:00)
[2018-02-17] MEDS: APIXABAN 5 MG TABLET PO SCH (21:43)
[2018-02-17 22:33] LABS: CREATINE KINASE MB 0.8 ng/mL (0.5-3.6); CREATINE KINASE, TOTAL 44 U/L (21-232); MYOGLOBIN 30 ng/mL (10-92); TROPONIN I < 0.04 ng/mL (0.00-0.06)
[2018-02-18] VITALS: BP 149/73
[2018-02-18 04:00] VITALS: BP 139/87
[2018-02-18 04:50] LABS: HEMATOCRIT 35.7 % (36-48); MEAN CORPUSCULAR HEMOGLOBIN 28.2 pg (27.0-33.0); MEAN CORPUSCULAR HGB CONC 32.9 g/dL (32.0-36.0); MEAN CORPUSCULAR VOLUME 85.5 fL (79-99); NUCLEATED RED BLOOD CELLS 0.1 % (0.0-0.19); PLATELET COUNT (AUTO) 195 K/uL (130-400); RED BLOOD CELL COUNT(AUTO) 4.18 MIL/uL (4.00-5.50); RED CELL DISTRIBUTION WIDTH 18.6 % (11.0-15.5); WHITE BLOOD COUNT (AUTO) 7.6 K/uL (4.8-10.8)
[2018-02-18 05:00] LABS: ALBUMIN 3.2 g/dL (3.5-5.0); BILIRUBIN,TOTAL 0.4 mg/dL (0.2-1.0); CREATININE 0.6 mg/dL (0.5-1.5); POTASSIUM 3.2 mmol/L (3.5-5.1); TOTAL PROTEIN, SERUM 5.8 g/dL (6.0-8.3)
[2018-02-18] MEDS: PANTOPRAZOLE SODIUM 40 MG TABLET.DR PO SCH (07:41)
[2018-02-18] MEDS ORDERED: LIDOCAINE HCL-MPF 1% 2ML VIAL IVP PRN (07:45)
[2018-02-18] MEDS ORDERED: POTASSIUM CHLORIDE 10% ELIXIR 20 MEQ/15 ML UDCUP PO PRN (07:45)
[2018-02-18] MEDS ORDERED: POTASSIUM CHLORIDE 20MEQ/100ML 100 ML IV PRN (07:45)
[2018-02-18 08:15] VITALS: BP 147/78
[2018-02-18] MEDS ORDERED: VENLAFAXINE HCL XR 150 MG CAP PO SCH (09:00)
[2018-02-18] MEDS: APIXABAN 5 MG TABLET PO SCH ×2 (10:38→20:30)
[2018-02-18] MEDS: VENLAFAXINE HCL XR 37.5 MG CAP PO SCH (10:38)
[2018-02-18] MEDS: CHANTIX 1MG PO SCH ×2 (10:38→22:41)
[2018-02-18 12:18] VITALS: BP 128/75
[2018-02-18 17:14] VITALS: BP 125/82
[2018-02-18] MEDS: POTASSIUM CHLORIDE 20 MEQ ERTAB PO PRN (18:21)
[2018-02-18 20:00] VITALS: BP 146/89
[2018-02-19] VITALS (7 sets, daily range): BP systolic 102–153; BP diastolic 55–94
[2018-02-19] MEDS: POTASSIUM CHLORIDE 20 MEQ ERTAB PO PRN (03:12)
[2018-02-19 06:17] LABS: HEMATOCRIT 34.6 % (36-48); MEAN CORPUSCULAR HEMOGLOBIN 28.9 pg (27.0-33.0); MEAN CORPUSCULAR HGB CONC 33.4 g/dL (32.0-36.0); MEAN CORPUSCULAR VOLUME 86.6 fL (79-99); NUCLEATED RED BLOOD CELLS 0.1 % (0.0-0.19); PLATELET COUNT (AUTO) 224 K/uL (130-400); RED CELL DISTRIBUTION WIDTH 18.4 % (11.0-15.5); WHITE BLOOD COUNT (AUTO) 6.2 K/uL (4.8-10.8)
[2018-02-19 06:29] LABS: ALBUMIN 3.1 g/dL (3.5-5.0); BILIRUBIN,TOTAL 0.2 mg/dL (0.2-1.0); CREATININE 0.7 mg/dL (0.5-1.5); POTASSIUM 3.7 mmol/L (3.5-5.1)
[2018-02-19] MEDS: PANTOPRAZOLE SODIUM 40 MG TABLET.DR PO SCH (07:30)
[2018-02-19] MEDS: VENLAFAXINE HCL XR 37.5 MG CAP PO SCH (09:00)
[2018-02-19] MEDS: APIXABAN 5 MG TABLET PO SCH ×2 (09:00→21:09)
[2018-02-19] MEDS ORDERED: REGADENOSON 0.4 MG/5 ML PF SYG IVP SCH (11:00)
[2018-02-19] MEDS ORDERED: IBUPROFEN 400 MG TABLET ONE (16:15)
[2018-02-19] MEDS ORDERED: IBUPROFEN 400 MG TABLET PO PRN (16:15)
[2018-02-19] MEDS ORDERED: ALPRAZOLAM 1 MG TAB ONE (16:17)
[2018-02-19] MEDS: CHANTIX 1MG PO SCH ×2 (16:50→21:08)
[2018-02-19] MEDS ORDERED: LORAZEPAM 2 MG TABLET PO PRN (19:00)
[2018-02-19] MEDS ORDERED: LORAZEPAM 1 MG TABLET PO PRN (19:23)
[2018-02-19] MEDS: ALPRAZOLAM 1 MG TAB PO PRN (21:10)
[2018-02-20 04:04] VITALS: BP 137/87
[2018-02-20] MEDS: PANTOPRAZOLE SODIUM 40 MG TABLET.DR PO SCH (06:31)
[2018-02-20 07:00] VITALS: BP 116/61
[2018-02-20] MEDS: APIXABAN 5 MG TABLET PO SCH (09:28)
[2018-02-20] MEDS: ALPRAZOLAM 1 MG TAB PO PRN (09:28)
[2018-02-20] MEDS: VENLAFAXINE HCL XR 37.5 MG CAP PO SCH (09:29)
[2018-02-20] MEDS: CHANTIX 1MG PO SCH (09:29)
[2018-02-20 11:00] VITALS: BP 116/65
== END 2018-02-20 12:29 | disposition home or self-care (01) ==
LOC: EDH 13:58 → EDHIP 15:30 → 3DH 17:53
PROVIDERS: ADMIT Internal Medicine; ATTEND Internal Medicine
DX: R07.89 Other chest pain (principal); J44.9 Chronic obstructive pulmonary disease, unspecified; I10 Essential (primary) hypertension; E78.5 Hyperlipidemia, unspecified; G89.29 Other chronic pain; M25.552 Pain in left hip; G40.909 Epilepsy, unspecified, not intractable, without status epilepticus; F17.210 Nicotine dependence, cigarettes, uncomplicated; F32.9 Major depressive disorder, single episode, unspecified; Z86.718 Personal history of other venous thrombosis and embolism; Z95.0 Presence of cardiac pacemaker
CPT/HCPCS: 36415 ×3; 71045; 74176; 78452; 80053 ×3; 82550 ×2; 82553 ×2; 83874 ×2; 84484 ×3; 85025; 85027 ×2; 93005; 93017; 96361; 96374; 97039 ×2; 97116 ×2; 97161; 99285; A9500 ×2; G0378 ×69; G8978; G8979; G8980; G8981; G8982; G8983; J2785; J3480 ×2; J3490 ×2

== ENCOUNTER 2018-02-21 11:06 | Emergency (ER) | payer OTHER, MEDICARE ==
[~2018-02-21 11:06] MED LIST changes: +ALPR2TAB7 PO; +LORA2TAB2 PO; +VARE1TAB22 PO; +VENL100T4 PO
[2018-02-21 12:25] LABS: BASOPHILS % (AUTO) 0.6 % (0.0-5.0); EOSINOPHILS % (AUTO) 5.1 % (0.0-8.0); HEMATOCRIT 38.2 % (36-48); LYMPHOCYTES % (AUTO) 26.1 % (21.0-51.0); MEAN CORPUSCULAR HEMOGLOBIN 28.4 pg (27.0-33.0); MEAN CORPUSCULAR HGB CONC 32.7 g/dL (32.0-36.0); MEAN CORPUSCULAR VOLUME 86.7 fL (79-99); MONOCYTES % (AUTO) 5.7 % (3.0-13.0); NEUTROPHILS % (AUTO) 62.5 % (40.0-77.0); PLATELET COUNT (AUTO) 204 K/uL (130-400); RED CELL DISTRIBUTION WIDTH 18.3 % (11.0-15.5); WHITE BLOOD COUNT (AUTO) 5.7 K/uL (4.8-10.8)
[2018-02-21 12:40] LABS: CREATININE 0.7 mg/dL (0.5-1.5); POTASSIUM 3.7 mmol/L (3.5-5.1)
[2018-02-21 12:56] LABS: ALBUMIN 3.8 g/dL (3.5-5.0); BILIRUBIN,TOTAL 0.3 mg/dL (0.2-1.0)
[2018-02-21] MEDS ORDERED: HYDROCODONE/ACETAMINOPHEN 5/325 MG TAB ONE (13:11)
== END 2018-02-21 19:07 | disposition home or self-care (01) ==
LOC: EDH 11:06
DX: S70.02XA Contusion of left hip, initial encounter (principal); E78.5 Hyperlipidemia, unspecified; I10 Essential (primary) hypertension; Z91.041 Radiographic dye allergy status; Z91.013 Allergy to seafood; Z88.8 Allergy status to other drugs, medicaments and biological substances; W06.XXXA Fall from bed, initial encounter; Y93.89 Activity, other specified; Y92.89 Other specified places as the place of occurrence of the external cause; Y99.8 Other external cause status
CPT/HCPCS: 36415; 70450; 71045; 72125; 73502; 80053; 82550; 82553; 84484; 85025; 93005

== ENCOUNTER 2018-02-21 19:08 | Observation (INO) | payer OTHER, MEDICARE ==
[~2018-02-21] VITALS: Ht 162.6 cm; Wt 68.4 kg
[~2018-02-21 19:08] MED LIST changes: -ACET1TAB25 PO; -ALPR0.5T PO; -ATOR40TA69 PO; -DILT120T PO; -DONE5TAB33 PO; -LEVE750T4 PO; -OSELT15L PO; -RIVA15TA PO; -THIAM100TB PO; -TRAZ-185 PO; -[UNRECOGNIZED DRUG - OTHER] PO
[2018-02-21] MEDS ORDERED: SODIUM CHLORIDE 0.9% 10 ML VIAL IVP PRN (20:15)
[2018-02-21 20:17] LABS: APPEARANCE,URINE Clear (CLEAR); BILIRUBIN,URINE Negative (NEGATIVE); COLOR,URINE Yellow (YELLOW); GLUCOSE, URINE (UA) Negative (NEGATIVE); KETONES,URINE 15 mg/dL (NEGATIVE); LEUKOCYTE ESTERASE ,URINE Negative (NEGATIVE); NITRATE,URINE Negative (NEGATIVE); OCCULT BLOOD,URINE Negative (NEGATIVE); PROTEIN,URINE Negative (NEGATIVE); UROBILINOGEN,URINE 0.2 mg/dL (0.2-1.0)
[2018-02-21 20:55] VITALS: BP 148/78
[2018-02-22] VITALS (7 sets, daily range): BP systolic 100–144; BP diastolic 65–88
[2018-02-22] MEDS: VARENICLINE TARTRATE 1 MG PO SCH ×2 (09:00→21:00)
[2018-02-22] MEDS: ALPRAZOLAM 1 MG TAB PO SCH ×3 (09:48→21:00)
[2018-02-22 16:51] LABS: AMPHET/METH SCREEN,URINE NEGATIVE (NEGATIVE); BARBITURATE SCREEN, URINE NEGATIVE (NEGATIVE); BENZODIAZEPINES SCREEN,URINE POSITIVE (NEGATIVE); CANNABINOID SCREEN,URINE NEGATIVE (NEGATIVE); COCAINE SCREEN,URINE NEGATIVE (NEGATIVE); OPIATE SCREEN,URINE NEGATIVE (NEGATIVE); PHENCYCLIDINE SCREEN,URINE NEGATIVE (NEGATIVE)
[2018-02-22] MEDS ORDERED: LORAZEPAM 1 MG TABLET PO SCH (21:00)
[2018-02-23 03:00] VITALS: BP 110/69
[2018-02-23 07:59] VITALS: BP 135/76
[2018-02-23] MEDS: VARENICLINE TARTRATE 1 MG PO SCH (09:00)
[2018-02-23] MEDS: ALPRAZOLAM 1 MG TAB PO SCH (09:32)
[2018-02-23 11:36] VITALS: BP 107/61
[2018-02-23 16:26] VITALS: BP 116/87
== END 2018-02-23 18:30 | disposition home or self-care (01) ==
LOC: EDH 19:08 → EDHIP 19:49 → 3CH 20:25
PROVIDERS: ADMIT Internal Medicine; ATTEND Internal Medicine
DX: R41.82 Altered mental status, unspecified (principal); J44.9 Chronic obstructive pulmonary disease, unspecified; I10 Essential (primary) hypertension; E78.5 Hyperlipidemia, unspecified; I25.10 Atherosclerotic heart disease of native coronary artery without angina pectoris; G40.909 Epilepsy, unspecified, not intractable, without status epilepticus; F03.90 Unspecified dementia, unspecified severity, without behavioral disturbance, psychotic disturbance, mood disturbance, and anxiety; F31.9 Bipolar disorder, unspecified; F60.9 Personality disorder, unspecified; F17.210 Nicotine dependence, cigarettes, uncomplicated
CPT/HCPCS: 80305; 81003; 82948; 99285; G0378 ×47

== ENCOUNTER 2018-02-24 10:35 | Observation (INO) | payer OTHER, MEDICARE ==
[~2018-02-24 10:35] MED LIST changes: -ASPI-1197 PO; -MEMA5TAB15 PO; -VENL100T4 PO
[2018-02-24] MEDS ORDERED: SODIUM CHLORIDE 0.9% 1000ML 1,000 ML IV ONE (11:02)
[2018-02-24 11:38] LABS: BASOPHILS % (AUTO) 0.6 % (0.0-5.0); HEMATOCRIT 40.3 % (36-48); LYMPHOCYTES % (AUTO) 16.5 % (21.0-51.0); MEAN CORPUSCULAR HEMOGLOBIN 28.4 pg (27.0-33.0); MEAN CORPUSCULAR HGB CONC 32.7 g/dL (32.0-36.0); MEAN CORPUSCULAR VOLUME 86.8 fL (79-99); MONOCYTES % (AUTO) 5.5 % (3.0-13.0); NEUTROPHILS % (AUTO) 75.4 % (40.0-77.0); PLATELET COUNT (AUTO) 193 K/uL (130-400); RED BLOOD CELL COUNT(AUTO) 4.65 MIL/uL (4.00-5.50); RED CELL DISTRIBUTION WIDTH 18.2 % (11.0-15.5)
[2018-02-24 11:38] LABS: APPEARANCE,URINE Clear (CLEAR); BILIRUBIN,URINE Negative (NEGATIVE); COLOR,URINE Yellow (YELLOW); GLUCOSE, URINE (UA) Negative (NEGATIVE); KETONES,URINE Negative (NEGATIVE); LEUKOCYTE ESTERASE ,URINE Moderate (NEGATIVE); NITRATE,URINE Negative (NEGATIVE); OCCULT BLOOD,URINE Negative (NEGATIVE); PROTEIN,URINE Negative (NEGATIVE); UROBILINOGEN,URINE 0.2 mg/dL (0.2-1.0)
[2018-02-24 11:44] LABS: AMPHET/METH SCREEN,URINE NEGATIVE (NEGATIVE); BARBITURATE SCREEN, URINE NEGATIVE (NEGATIVE); BENZODIAZEPINES SCREEN,URINE POSITIVE (NEGATIVE); CANNABINOID SCREEN,URINE NEGATIVE (NEGATIVE); COCAINE SCREEN,URINE NEGATIVE (NEGATIVE); OPIATE SCREEN,URINE NEGATIVE (NEGATIVE); PHENCYCLIDINE SCREEN,URINE NEGATIVE (NEGATIVE)
[2018-02-24 11:48] LABS: CARBON DIOXIDE 26 mmol/L (21-32); CHLORIDE 107 mmol/L (101-111); CREATININE 0.7 mg/dL (0.5-1.5); GLOMERULAR FILTR. RATE CALC 87 mL/min (>60); GLUCOSE,RANDOM 102 mg/dL (70-105); POTASSIUM 3.8 mmol/L (3.5-5.1); SODIUM SERUM 141 mmol/L (136-145); UREA NITROGEN, BLOOD 13 mg/dL (7-18)
[2018-02-24 11:52] LABS: INR 0.97 (0.85-1.15); PARTIAL THROMBOPLASTIN TIME 25.4 SEC (26.3-35.5); PROTHROMBIN TIME 10.2 SEC (9.6-11.6)
[2018-02-24 11:53] LABS: ALANINE AMINOTRANSFERASE 17 U/L (12-78); ALBUMIN 3.9 g/dL (3.5-5.0); ASPARTATE AMINOTRANSFERASE 19 U/L (10-37); BILIRUBIN,TOTAL 0.4 mg/dL (0.2-1.0); CREATINE KINASE, TOTAL 61 U/L (21-232); TOTAL PROTEIN, SERUM 7.3 g/dL (6.0-8.3)
[2018-02-24 12:04] LABS: ALCOHOL, BLOOD < 3 mg/dL (0-10)
[2018-02-24 12:04] LABS: RBC,URINE 0-1 /HPF (0-1)
[2018-02-24 12:05] LABS: BACTERIA,URINE Few /HPF (None Seen); MUCUS,URINE Moderate LPF (None Seen); SQUAMOUS EPITHELIAL CELL,UR Rare /HPF (0-2)
[2018-02-24] MEDS ORDERED: ONDANSETRON ODT 4 MG TAB ONE (12:13)
[2018-02-24 21:48] VITALS: BP 153/75
[2018-02-25 00:14] VITALS: BP 106/62
[2018-02-25 04:33] VITALS: BP 112/68
[2018-02-25 05:19] LABS: BASOPHILS % (AUTO) 0.6 % (0.0-5.0); EOSINOPHILS % (AUTO) 3.3 % (0.0-8.0); HEMATOCRIT 32.8 % (36-48); LYMPHOCYTES % (AUTO) 31.4 % (21.0-51.0); MEAN CORPUSCULAR HEMOGLOBIN 29.2 pg (27.0-33.0); MEAN CORPUSCULAR HGB CONC 34.1 g/dL (32.0-36.0); MEAN CORPUSCULAR VOLUME 85.7 fL (79-99); MONOCYTES % (AUTO) 8.6 % (3.0-13.0); NEUTROPHILS % (AUTO) 56.1 % (40.0-77.0); NUCLEATED RED BLOOD CELLS 0.1 % (0.0-0.19); PLATELET COUNT (AUTO) 246 K/uL (130-400); RED BLOOD CELL COUNT(AUTO) 3.82 MIL/uL (4.00-5.50); RED CELL DISTRIBUTION WIDTH 18.1 % (11.0-15.5); WHITE BLOOD COUNT (AUTO) 6.7 K/uL (4.8-10.8)
[2018-02-25 05:37] LABS: ALBUMIN 3.1 g/dL (3.5-5.0); BILIRUBIN,TOTAL 0.3 mg/dL (0.2-1.0); CREATININE 0.7 mg/dL (0.5-1.5); POTASSIUM 3.7 mmol/L (3.5-5.1); TOTAL PROTEIN, SERUM 5.9 g/dL (6.0-8.3)
[2018-02-25 08:00] VITALS: BP 114/78
[2018-02-25] MEDS: ALPRAZOLAM 1 MG TAB PO SCH ×3 (08:56→21:46)
[2018-02-25] MEDS: CHANTIX 1 MG PO SCH ×2 (09:00→21:00)
[2018-02-25 11:00] VITALS: BP 127/66
[2018-02-25 16:00] VITALS: BP 123/74
[2018-02-25 20:51] VITALS: BP 139/75
[2018-02-25] MEDS ORDERED: LORAZEPAM 2 MG TABLET PO SCH (21:00)
[2018-02-25] MEDS ORDERED: LORAZEPAM 1 MG TABLET ONE (21:42)
[2018-02-26 00:26] VITALS: BP 149/78
[2018-02-26 04:24] VITALS: BP 136/74
[2018-02-26] MEDS ORDERED: ALPRAZOLAM 1 MG TAB PO PRN ×2 (06:45)
[2018-02-26] MEDS ORDERED: LORAZEPAM 2 MG TABLET PO PRN (06:45)
[2018-02-26 07:00] VITALS: BP_SYST 126; BP_SYST 128; BP_DIAS 73; BP_DIAS 86
[2018-02-26] MEDS ORDERED: LORAZEPAM 1 MG TABLET PO PRN (07:00)
[2018-02-26 11:00] VITALS: BP 110/73
[2018-02-26 16:00] VITALS: BP 115/70
== END 2018-02-26 18:55 | disposition home or self-care (01) ==
LOC: EDH 10:35 → EDHIP 18:50 → 3CH 21:28
PROVIDERS: ADMIT Internal Medicine; ATTEND Internal Medicine
DX: F03.90 Unspecified dementia, unspecified severity, without behavioral disturbance, psychotic disturbance, mood disturbance, and anxiety (principal); F32.9 Major depressive disorder, single episode, unspecified; F41.9 Anxiety disorder, unspecified; J44.9 Chronic obstructive pulmonary disease, unspecified
CPT/HCPCS: 36415 ×2; 70450; 72125; 80053 ×2; 80305; 81001; 82550; 82948; 85025 ×2; 85610; 85730; 93005; 99285; G0378 ×48; G0480; J7030

== ENCOUNTER 2018-06-20 09:55 | Emergency (ER) | payer MEDICARE ==
[2018-06-20] MEDS ORDERED: SODIUM CHLORIDE 0.9% 250 ML IV ONE (10:32)
[2018-06-20 11:09] LABS: BASOPHILS % (AUTO) 0.5 % (0.0-5.0); EOSINOPHILS % (AUTO) 1.8 % (0.0-8.0); HEMATOCRIT 39.2 % (36-48); LYMPHOCYTES % (AUTO) 14.1 % (21.0-51.0); MEAN CORPUSCULAR HEMOGLOBIN 32.7 pg (27.0-33.0); MEAN CORPUSCULAR HGB CONC 33.5 g/dL (32.0-36.0); MEAN CORPUSCULAR VOLUME 97.7 fL (79-99); MONOCYTES % (AUTO) 4.7 % (3.0-13.0); NEUTROPHILS % (AUTO) 78.9 % (40.0-77.0); PLATELET COUNT (AUTO) 166 K/uL (130-400); RED BLOOD CELL COUNT(AUTO) 4.01 MIL/uL (4.00-5.50); RED CELL DISTRIBUTION WIDTH 17.3 % (11.0-15.5)
[2018-06-20 11:11] LABS: CREATININE 0.9 mg/dL (0.5-1.5); POTASSIUM 4.8 mmol/L (3.5-5.1)
[2018-06-20 11:16] LABS: ALBUMIN 3.8 g/dL (3.5-5.0); BILIRUBIN,TOTAL 0.3 mg/dL (0.2-1.0); TOTAL PROTEIN, SERUM 6.8 g/dL (6.0-8.3)
[2018-06-20 11:28] LABS: INR 0.95 (0.85-1.15); PARTIAL THROMBOPLASTIN TIME 23.5 SEC (26.3-35.5)
[2018-06-20 11:39] LABS: APPEARANCE,URINE Clear (CLEAR); BILIRUBIN,URINE Negative (NEGATIVE); COLOR,URINE Yellow (YELLOW); GLUCOSE, URINE (UA) Negative (NEGATIVE); KETONES,URINE Negative (NEGATIVE); LEUKOCYTE ESTERASE ,URINE Negative (NEGATIVE); NITRATE,URINE Negative (NEGATIVE); OCCULT BLOOD,URINE Negative (NEGATIVE); PH,URINE 7.5 (5.0-8.0); PROTEIN,URINE Trace (NEGATIVE); UROBILINOGEN,URINE 0.2 mg/dL (0.2-1.0)
[2018-06-20 11:46] LABS: AMPHET/METH SCREEN,URINE NEGATIVE (NEGATIVE); BARBITURATE SCREEN, URINE NEGATIVE (NEGATIVE); BENZODIAZEPINES SCREEN,URINE POSITIVE (NEGATIVE); CANNABINOID SCREEN,URINE NEGATIVE (NEGATIVE); COCAINE SCREEN,URINE NEGATIVE (NEGATIVE); OPIATE SCREEN,URINE NEGATIVE (NEGATIVE); PHENCYCLIDINE SCREEN,URINE NEGATIVE (NEGATIVE)
[2018-06-20 11:48] LABS: BACTERIA,URINE None Seen /HPF (None Seen); MUCUS,URINE Rare LPF (None Seen); RBC,URINE None Seen /HPF (0-1); SQUAMOUS EPITHELIAL CELL,UR Rare /HPF (0-2); WBC,URINE None Seen /HPF (0-1)
[2018-06-20] MEDS ORDERED: KETOROLAC TROMETHAMINE 30MG/ML ONE (12:20)
== END 2018-06-20 13:36 | disposition home or self-care (01) ==
LOC: EDH 09:55
DX: S40.011A Contusion of right shoulder, initial encounter (principal); S70.02XA Contusion of left hip, initial encounter; E78.5 Hyperlipidemia, unspecified; I10 Essential (primary) hypertension; F41.9 Anxiety disorder, unspecified; Z91.013 Allergy to seafood; Z91.041 Radiographic dye allergy status; Z88.8 Allergy status to other drugs, medicaments and biological substances; Z96.642 Presence of left artificial hip joint; Z96.651 Presence of right artificial knee joint; Z79.899 Other long term (current) drug therapy; Z72.0 Tobacco use; Z98.890 Other specified postprocedural states; W18.39XA Other fall on same level, initial encounter; Y93.01 Activity, walking, marching and hiking; Y92.89 Other specified places as the place of occurrence of the external cause; Y99.8 Other external cause status
CPT/HCPCS: 36415; 72170; 71045; 73552; 80053; 80305; 81001; 82550; 84484; 85025; 85610; 85730; 93005; 96374; 99285; J1885; J7030

== ENCOUNTER 2019-05-25 01:50 | Emergency (ER) | payer MEDICARE ==
[2019-05-25] MEDS ORDERED: ASPIRIN 325 MG TABLET ONE (02:09)
[2019-05-25] MEDS ORDERED: IPRATROPIUM/ALBUTEROL SULFATE 3 ML SOLUTION IH ONE (02:17)
[2019-05-25 02:38] LABS: HEMATOCRIT 45.8 % (36-48); LYMPHOCYTES % (AUTO) 33.1 % (21.0-51.0); MEAN CORPUSCULAR HEMOGLOBIN 33.3 pg (27.0-33.0); MEAN CORPUSCULAR HGB CONC 33.5 g/dL (32.0-36.0); MEAN CORPUSCULAR VOLUME 99.6 fL (79-99); MONOCYTES % (AUTO) 7.1 % (3.0-13.0); NEUTROPHILS % (AUTO) 55.8 % (40.0-77.0); PLATELET COUNT (AUTO) 175 K/uL (130-400); RED CELL DISTRIBUTION WIDTH 14.6 % (11.0-15.5); WHITE BLOOD COUNT (AUTO) 9.3 K/uL (4.8-10.8)
[2019-05-25 02:50] LABS: POTASSIUM 3.8 mmol/L (3.5-5.1)
[2019-05-25] MEDS ORDERED: METHYLPREDNISOLONE SOD SUCC 40MG/ML 1ML ONE (03:54)
[2019-05-25 04:26] LABS: ALBUMIN 4.2 g/dL (3.5-5.0); BILIRUBIN,TOTAL 0.5 mg/dL (0.2-1.0); TOTAL PROTEIN, SERUM 7.4 g/dL (6.0-8.3)
[2019-05-25 04:40] LABS: B-TYPE NATRIURETIC PEPTIDE 44 pg/mL (0-100)
[2019-05-25] MEDS ORDERED: ALBUTEROL SULFATE 0.083% 2.5 MG/3 ML INH IH ONE (05:25)
[2019-05-25 05:33] LABS: INR 0.97 (0.85-1.15); PARTIAL THROMBOPLASTIN TIME 24.9 SEC (26.3-35.5); PROTHROMBIN TIME 10.2 SEC (9.6-11.6)
== END 2019-05-25 08:58 | disposition home or self-care (01) ==
LOC: EDH 01:50
DX: R06.2 Wheezing (principal); R06.00 Dyspnea, unspecified; F32.9 Major depressive disorder, single episode, unspecified; E78.5 Hyperlipidemia, unspecified; I10 Essential (primary) hypertension; F41.9 Anxiety disorder, unspecified; Z98.890 Other specified postprocedural states; Z72.0 Tobacco use; Z88.5 Allergy status to narcotic agent; Z91.041 Radiographic dye allergy status; Z91.013 Allergy to seafood
CPT/HCPCS: 36415; 71045; 80053; 82550; 83874; 83880; 84484 ×2; 85025; 85610; 85730; 93005 ×2; 94640 ×2; 99285; J2920

== ENCOUNTER 2019-08-18 13:10 | Emergency (ER) | payer OTHER, MEDICARE ==
[2019-08-18 13:44] LABS: APPEARANCE,URINE Clear (CLEAR); BILIRUBIN,URINE Negative (NEGATIVE); COLOR,URINE Yellow (YELLOW); GLUCOSE, URINE (UA) Negative (NEGATIVE); KETONES,URINE Negative (NEGATIVE); LEUKOCYTE ESTERASE ,URINE Negative (NEGATIVE); NITRATE,URINE Negative (NEGATIVE); OCCULT BLOOD,URINE Negative (NEGATIVE); PH,URINE 5.5 (5.0-8.0); PROTEIN,URINE Negative (NEGATIVE); UROBILINOGEN,URINE 0.2 mg/dL (0.2-1.0)
[2019-08-18 13:47] LABS: BASOPHILS % (AUTO) 0.1 % (0.0-5.0); HEMATOCRIT 39.8 % (36-48); LYMPHOCYTES % (AUTO) 21.4 % (21.0-51.0); MEAN CORPUSCULAR HEMOGLOBIN 33.5 pg (27.0-33.0); MEAN CORPUSCULAR HGB CONC 33.5 g/dL (32.0-36.0); MEAN CORPUSCULAR VOLUME 100.1 fL (79-99); MONOCYTES % (AUTO) 4.7 % (3.0-13.0); NEUTROPHILS % (AUTO) 68.8 % (40.0-77.0); PLATELET COUNT (AUTO) 238 K/uL (130-400); RED BLOOD CELL COUNT(AUTO) 3.98 MIL/uL (4.00-5.50); RED CELL DISTRIBUTION WIDTH 13.8 % (11.0-15.5); WHITE BLOOD COUNT (AUTO) 8.3 K/uL (4.8-10.8)
[2019-08-18 13:51] LABS: CREATININE 0.8 mg/dL (0.5-1.5)
[2019-08-18 13:51] LABS: AMPHET/METH SCREEN,URINE NEGATIVE (NEGATIVE); BARBITURATE SCREEN, URINE NEGATIVE (NEGATIVE); BENZODIAZEPINES SCREEN,URINE POSITIVE (NEGATIVE); CANNABINOID SCREEN,URINE NEGATIVE (NEGATIVE); COCAINE SCREEN,URINE NEGATIVE (NEGATIVE); OPIATE SCREEN,URINE NEGATIVE (NEGATIVE); PHENCYCLIDINE SCREEN,URINE NEGATIVE (NEGATIVE)
[2019-08-18 13:55] LABS: ALBUMIN 3.4 g/dL (3.5-5.0); BILIRUBIN,DIRECT 0.1 mg/dL (0.0-0.3); BILIRUBIN,TOTAL 0.3 mg/dL (0.2-1.0); TOTAL PROTEIN, SERUM 6.6 g/dL (6.0-8.3)
[2019-08-18 14:27] LABS: B-TYPE NATRIURETIC PEPTIDE 172 pg/mL (0-100)
== END 2019-08-18 17:36 | disposition home or self-care (01) ==
LOC: EDH 13:10
DX: R41.82 Altered mental status, unspecified (principal); F41.9 Anxiety disorder, unspecified; F31.9 Bipolar disorder, unspecified; E78.5 Hyperlipidemia, unspecified; I10 Essential (primary) hypertension; Z91.013 Allergy to seafood; Z91.041 Radiographic dye allergy status; Z88.6 Allergy status to analgesic agent; W18.39XA Other fall on same level, initial encounter; Y93.89 Activity, other specified; Y92.89 Other specified places as the place of occurrence of the external cause; Y99.8 Other external cause status
CPT/HCPCS: 36415; 70450; 80048; 80076; 80305; 81003; 82140; 82550; 83880; 84484; 85025; 93005

== ENCOUNTER 2020-02-20 22:39 | Inpatient (IN) | payer OTHER, MEDICARE ==
[~2020-02-20] VITALS: Ht 162.6 cm; Wt 78.5 kg
[2020-02-20] MEDS ORDERED: ALBUTEROL INHALER 90MCG/INH IH ONE (23:08)
[2020-02-20] MEDS ORDERED: METHYLPREDNISOLONE SOD SUCC 125MG/2ML VIAL ONE (23:25)
[2020-02-20 23:32] LABS: BASOPHILS % (AUTO) 0.6 % (0.0-5.0); EOSINOPHILS % (AUTO) 10.9 % (0.0-8.0); HEMATOCRIT 45.3 % (36-48); LYMPHOCYTES % (AUTO) 20.9 % (21.0-51.0); MEAN CORPUSCULAR HEMOGLOBIN 33.2 pg (27.0-33.0); MEAN CORPUSCULAR HGB CONC 33.3 g/dL (32.0-36.0); MEAN CORPUSCULAR VOLUME 99.6 fL (79-99); MONOCYTES % (AUTO) 5.8 % (3.0-13.0); NEUTROPHILS % (AUTO) 61.5 % (40.0-77.0); PLATELET COUNT (AUTO) 197 K/uL (130-400); RED BLOOD CELL COUNT(AUTO) 4.55 MIL/uL (4.00-5.50); RED CELL DISTRIBUTION WIDTH 12.6 % (11.0-15.5); WHITE BLOOD COUNT (AUTO) 10.8 K/uL (4.8-10.8)
[2020-02-20 23:47] LABS: INR 0.87 (0.85-1.15); PARTIAL THROMBOPLASTIN TIME 27.3 SEC (26.3-35.5); PROTHROMBIN TIME 9.4 SEC (9.6-11.6)
[2020-02-20 23:49] LABS: CREATININE 0.9 mg/dL (0.5-1.5); POTASSIUM 3.7 mmol/L (3.5-5.1)
[2020-02-20] MEDS ORDERED: AZITHROMYCIN 500MG+NS 250ML 250 ML IV ONE (23:49)
[2020-02-20] MEDS ORDERED: CEFTRIAXONE SODIUM 1 GM ONE (23:50)
[2020-02-20 23:54] LABS: ALBUMIN 4.4 g/dL (3.5-5.0); BILIRUBIN,TOTAL 0.3 mg/dL (0.2-1.0)
[2020-02-20 23:55] LABS: B-TYPE NATRIURETIC PEPTIDE 136 pg/mL (0-100)
[2020-02-21] VITALS (7 sets, daily range): BP systolic 97–124; BP diastolic 48–79
[2020-02-21 00:05] LABS: APPEARANCE,URINE Clear (CLEAR); BILIRUBIN,URINE Negative (NEGATIVE); COLOR,URINE Yellow (YELLOW); GLUCOSE, URINE (UA) Negative (NEGATIVE); KETONES,URINE Negative (NEGATIVE); LEUKOCYTE ESTERASE ,URINE Negative (NEGATIVE); NITRATE,URINE Negative (NEGATIVE); OCCULT BLOOD,URINE Negative (NEGATIVE); PH,URINE 5.5 (5.0-8.0); PROTEIN,URINE Negative (NEGATIVE); UROBILINOGEN,URINE 0.2 mg/dL (0.2-1.0)
[2020-02-21 00:09] LABS: ABG BASE EXCESS 0.9 mmol/L (-2.0-3.0); ABG HCO3 24.9 mmol/L (21.0-28.0); ABG PCO2 38 mmHg (32-45)
[2020-02-21] MEDS ORDERED: ONDANSETRON HCL 4 MG/2 ML VIAL IV PRN (01:15)
[2020-02-21] MEDS ORDERED: ACETAMINOPHEN 325 MG TAB PO PRN ×2 (01:15)
[2020-02-21] MEDS: AZITHROMYCIN 500MG+NS 250ML 250 ML IV SCH ×2 (01:15→23:15)
[2020-02-21] MEDS: CEFTRIAXONE SODIUM 1 GM IV SCH ×2 (01:15→23:15)
[2020-02-21] MEDS ORDERED: LACTULOSE 20 GM/30 ML UDCUP PO PRN (01:15)
[2020-02-21] MEDS ORDERED: ALBUTEROL INHALER 90MCG/INH IH PRN (01:15)
[2020-02-21] MEDS ORDERED: LORAZEPAM 2 MG/ML 1 ML VIAL ONE (01:27)
[2020-02-21] MEDS ORDERED: HYDRALAZINE HCL 20 MG/ML VIAL IV PRN (02:45)
[2020-02-21 05:38] LABS: BASOPHILS % (AUTO) 0.3 % (0.0-5.0); EOSINOPHILS % (AUTO) 2.4 % (0.0-8.0); HEMATOCRIT 41.8 % (36-48); LYMPHOCYTES % (AUTO) 8.2 % (21.0-51.0); MEAN CORPUSCULAR HEMOGLOBIN 32.2 pg (27.0-33.0); MEAN CORPUSCULAR HGB CONC 32.8 g/dL (32.0-36.0); MEAN CORPUSCULAR VOLUME 98.1 fL (79-99); MONOCYTES % (AUTO) 0.7 % (3.0-13.0); PLATELET COUNT (AUTO) 196 K/uL (130-400); RED BLOOD CELL COUNT(AUTO) 4.26 MIL/uL (4.00-5.50); RED CELL DISTRIBUTION WIDTH 12.4 % (11.0-15.5); WHITE BLOOD COUNT (AUTO) 10.1 K/uL (4.8-10.8)
[2020-02-21 06:10] LABS: POTASSIUM 3.8 mmol/L (3.5-5.1)
[2020-02-21] MEDS ORDERED: ENOXAPARIN SODIUM 40 MG/0.4 ML SYRINGE SQ ONE (08:25)
[2020-02-21] MEDS ORDERED: FAMOTIDINE 20MG TAB 20 MG TAB ONE (08:33)
[2020-02-21] MEDS: FAMOTIDINE 20MG TAB 20 MG TAB PO SCH ×2 (09:00→22:42)
[2020-02-21] MEDS: ENOXAPARIN SODIUM 40 MG/0.4 ML SYRINGE SQ SCH (09:00)
[2020-02-21] MEDS ORDERED: ACETAMINOPHEN 325 MG TAB ONE (10:06)
[2020-02-21] MEDS ORDERED: LORAZEPAM 1 MG TABLET ONE (10:07)
[2020-02-21] MEDS ORDERED: HYD50 PO (15:08)
[2020-02-21] MEDS ORDERED: LORA-192 PO (15:10)
[2020-02-21] MEDS: ALPRAZOLAM 1 MG TAB PO PRN ×2 (15:11→23:15)
--- NOTE | 2020-02-21 17:03 | NUR ---
CM NOTE/IA MEET WITH PATIENT IN ROOM. PER PATIENT, LIVES ALONE, IS SEMI INDEPENDENT REQUIRING ASSISTANCE WITH SHOWERING, HAS PROVIDER DAILY THURSDAY - THURSDAY, HAS ROLLATOR WALKER, CANE AND SHOWER CHAIR IN USE, NO HH, PROVIDER/CAREGIVER DRIVE TO APPOINTMENTS AND FEELS SAFE TO RETURN BACK HOME. Addendum: 02/21/20 at 1707 by KJ SHI RN CM Amended: Links added.
--- NOTE | 2020-02-21 20:00 | NUR ---
MONIQUE consumer insights specialist for hospitalist rounded and informed day nurse beth and myself , that he reviewed patients home medications and restarted what he felt was pertinent. if patient starts having issues with sleep, then he may be paged for prn order for restoril standing order for iv lorazepam to be given prior to vq scan tmw
[2020-02-21] MEDS: NICOTINE 21 MG/ 24 HR PATCH TD SCH (21:51)
[2020-02-21] MEDS: HYDROXYZINE HCL 25 MG TABLET PO SCH (22:40)
[2020-02-22] VITALS (7 sets, daily range): BP systolic 95–132; BP diastolic 56–77
[2020-02-22] MEDS: ALPRAZOLAM 1 MG TAB PO PRN ×3 (06:27→19:58)
[2020-02-22] MEDS: FAMOTIDINE 20MG TAB 20 MG TAB PO SCH ×2 (07:28→19:58)
[2020-02-22] MEDS: HYDROXYZINE HCL 25 MG TABLET PO SCH ×3 (07:28→19:58)
[2020-02-22] MEDS: NICOTINE 21 MG/ 24 HR PATCH TD SCH (07:28)
[2020-02-22] MEDS: ENOXAPARIN SODIUM 40 MG/0.4 ML SYRINGE SQ SCH (07:29)
--- NOTE | 2020-02-22 08:00 | NUR ---
ASSESSMENT PT IS AAOX3 DENIES CP DENIES SOB DENIES NV NO COMPLAINTS AT THIS TIME. RESTING IN BED, CALL LIGHT WITHIN REACH. DR VALLECILLO ROUNDED STATES HE IS PRIMARY ON PATIENT, REMOVES HOSPITALIST AND [facility] PULMONARY FROM LIST. OTHER ORDERS RECEIVED AND ENTERED IN CPOE. DR CAN MADE AWARE OF CHANGE IN ATTENDING.
[2020-02-22] MEDS ORDERED: PREDNISONE 20 MG TABLET PO SCH (09:00)
[2020-02-22] MEDS ORDERED: NICOTINE 21 MG/ 24 HR PATCH TD SCH (09:00)
[2020-02-22] MEDS: IPRATROPIUM/ALBUTEROL SULFATE 3 ML SOLUTION IH SCH ×2 (19:04→23:41)
[2020-02-22] MEDS: CITALOPRAM 20 MG TABLET PO SCH (19:58)
[2020-02-23] MEDS: AZITHROMYCIN 500MG+NS 250ML 250 ML IV SCH (00:26)
[2020-02-23] MEDS: CEFTRIAXONE SODIUM 1 GM IV SCH (01:23)
[2020-02-23 03:58] LABS: HEMATOCRIT 37.2 % (36-48); MEAN CORPUSCULAR HGB CONC 32.8 g/dL (32.0-36.0); MEAN CORPUSCULAR VOLUME 100.5 fL (79-99); RED BLOOD CELL COUNT(AUTO) 3.7 MIL/uL (4.00-5.50); RED CELL DISTRIBUTION WIDTH 12.5 % (11.0-15.5); WHITE BLOOD COUNT (AUTO) 9.8 K/uL (4.8-10.8)
[2020-02-23 04:12] LABS: CREATININE 0.9 mg/dL (0.5-1.5)
[2020-02-23 04:30] VITALS: BP 126/65
[2020-02-23] MEDS: IPRATROPIUM/ALBUTEROL SULFATE 3 ML SOLUTION IH SCH ×3 (06:21→18:00)
[2020-02-23 08:35] VITALS: BP 128/75
[2020-02-23] MEDS: PREDNISONE 20 MG TABLET PO SCH (08:39)
[2020-02-23] MEDS: ENOXAPARIN SODIUM 40 MG/0.4 ML SYRINGE SQ SCH (08:39)
[2020-02-23] MEDS: FAMOTIDINE 20MG TAB 20 MG TAB PO SCH ×2 (08:39→20:16)
[2020-02-23] MEDS: MEMANTINE HCL 5 MG TABLET PO SCH (08:39)
[2020-02-23] MEDS: HYDROXYZINE HCL 25 MG TABLET PO SCH ×3 (08:39→20:16)
[2020-02-23] MEDS: NICOTINE 21 MG/ 24 HR PATCH TD SCH (08:40)
[2020-02-23] MEDS: ALPRAZOLAM 1 MG TAB PO PRN ×3 (08:40→20:16)
[2020-02-23 10:50] VITALS: BP 91/41
[2020-02-23 16:59] VITALS: BP 144/78
--- NOTE | 2020-02-23 17:00 | NUR ---
AGITATED PT AGITATED AT THIS TIME, STATES "EVERYBODY ARE THIEF IN THIS HOSPITAL" , STATES IS GOING "TO FIRE" PCP. POSITIVE REDIRECTION GIVEN, MEDICATED WITH PRN XANAX ORDERED FOR AGITATION.
--- NOTE | 2020-02-23 18:00 | NUR ---
LESS AGITATED PT MORE CALM AT THIS TIME, STATES FINDING HER MISSING PEN. SITTING AT SIDE OF BED, NO FURTHER AGITATION AT THIS TIME
[2020-02-23 19:00] VITALS: BP 136/73
[2020-02-23] MEDS: CITALOPRAM 20 MG TABLET PO SCH (20:16)
[2020-02-23] MEDS ORDERED: ALPRAZOLAM 0.25 MG TABLET PO ONE ×2 (21:00)
[2020-02-23 23:00] VITALS: BP 115/79
[2020-02-24] MEDS: AZITHROMYCIN 500MG+NS 250ML 250 ML IV SCH (01:49)
[2020-02-24] MEDS: CEFTRIAXONE SODIUM 1 GM IV SCH (01:49)
[2020-02-24 03:00] VITALS: BP 153/93
[2020-02-24] MEDS ORDERED: LORAZEPAM 0.5 MG TABLET PO SCH (05:45)
[2020-02-24] MEDS ORDERED: LORAZEPAM 0.5 MG TABLET ONE (05:48)
[2020-02-24] MEDS: IPRATROPIUM/ALBUTEROL SULFATE 3 ML SOLUTION IH SCH ×3 (06:28→11:00)
[2020-02-24] MEDS ORDERED: KETOROLAC TROMETHAMINE 15MG/ML IV SCH (08:00)
[2020-02-24] MEDS: FAMOTIDINE 20MG TAB 20 MG TAB PO SCH (08:13)
[2020-02-24] MEDS: HYDROXYZINE HCL 25 MG TABLET PO SCH (08:14)
[2020-02-24] MEDS: PREDNISONE 20 MG TABLET PO SCH (08:14)
[2020-02-24] MEDS: MEMANTINE HCL 5 MG TABLET PO SCH (08:14)
[2020-02-24] MEDS: NICOTINE 21 MG/ 24 HR PATCH TD SCH (08:14)
[2020-02-24] MEDS: ENOXAPARIN SODIUM 40 MG/0.4 ML SYRINGE SQ SCH (08:15)
[2020-02-24 08:37] VITALS: BP 145/74
[2020-02-24 11:51] VITALS: BP 116/66
--- NOTE | 2020-02-24 14:00 | NUR ---
DISCHARGE INSTRUCTIONS GIVEN TO PATIENT. MADE AWARE OF FOLLOW UP APPOINTMENT WITH DR. VALLECILLO. MADE AWARE OF ALL NEW PRESCRIPTIONS. PROVIDED WITH PRINTED RX. PATIENT WILL BE GOING HOME WITH WALKER FROM [facility] [place], INSTRUCTED TO RETURN WALKER WHEN SHE OBTAINS HER OWN PERSONAL WALKER. KJ CASE MANAGEMENT AND RACHEL PT AWARE. PATIENT AT THIS TIME AAOX3, SITTING UP TO CHAIR, DENIES ANY SHORTNESS OF BREATH. RESPIRATIONS EVEN AND UNLABORED. MEDICATIONS RETURNED TO PATIENT FROM PHARMACY INCLUDED ATIVAN AND ATARAX. IV REMOVED, TELE REMOVED. PATIENT WILL BE PICKED UP BY HER PROVIDER TEAGAN.
== END 2020-02-24 14:40 | disposition home or self-care (01) | DRG 193 ==
LOC: EDH 22:39 → EDHIP 02-21 01:10 → 4AH 02-21 12:29
PROVIDERS: ADMIT Internal Medicine; ATTEND Internal Medicine
DX: J18.9 Pneumonia, unspecified organism (principal); J96.91 Respiratory failure, unspecified with hypoxia; J45.901 Unspecified asthma with (acute) exacerbation; J44.0 Chronic obstructive pulmonary disease with (acute) lower respiratory infection; I10 Essential (primary) hypertension; F41.9 Anxiety disorder, unspecified; F31.9 Bipolar disorder, unspecified; E78.5 Hyperlipidemia, unspecified; G40.909 Epilepsy, unspecified, not intractable, without status epilepticus; M19.90 Unspecified osteoarthritis, unspecified site; F41.1 Generalized anxiety disorder; F60.7 Dependent personality disorder; I49.5 Sick sinus syndrome; Z96.611 Presence of right artificial shoulder joint; Z96.651 Presence of right artificial knee joint; F03.90 Unspecified dementia, unspecified severity, without behavioral disturbance, psychotic disturbance, mood disturbance, and anxiety; M25.552 Pain in left hip; F17.210 Nicotine dependence, cigarettes, uncomplicated; E66.9 Obesity, unspecified; R73.9 Hyperglycemia, unspecified; Z68.30 Body mass index [BMI] 30.0-30.9, adult; Z79.899 Other long term (current) drug therapy; Z95.0 Presence of cardiac pacemaker; Z98.891 History of uterine scar from previous surgery; Z88.8 Allergy status to other drugs, medicaments and biological substances; Z91.041 Radiographic dye allergy status; Z91.013 Allergy to seafood
CPT/HCPCS: 36415; 36600; 71045; 80048; 80053; 81003; 82550; 82803; 82948; 83605; 83690; 83880; 84484; 85025; 85027; 85378; 85610; 85730; 86140; 87040; 87486; 87581; 87633; 87635; 87798; 87804; 93005; 94640; 94664; 97039; 99291; G0378; G0480; J0456; J0696; J1650; J1885; J2060; J2930

== ENCOUNTER 2020-08-26 21:35 | Inpatient (IN) | payer OTHER, MEDICARE ==
[~2020-08-26] VITALS: Ht 162.6 cm; Wt 83.3 kg
[~2020-08-26 21:35] MED LIST changes: -ALPR2TAB7 PO; +HYD50 PO; +LORA-192 PO; -LORA2TAB2 PO; -VARE1TAB22 PO
[2020-08-26 22:29] LABS: BASOPHILS % (AUTO) 0.6 % (0.0-5.0); EOSINOPHILS % (AUTO) 4.9 % (0.0-8.0); HEMATOCRIT 43.7 % (36-48); LYMPHOCYTES % (AUTO) 31.7 % (21.0-51.0); MEAN CORPUSCULAR HEMOGLOBIN 33.3 pg (27.0-33.0); MEAN CORPUSCULAR VOLUME 100.9 fL (79-99); MONOCYTES % (AUTO) 6.6 % (3.0-13.0); NEUTROPHILS % (AUTO) 55.9 % (40.0-77.0); PLATELET COUNT (AUTO) 154 K/uL (130-400); RED BLOOD CELL COUNT(AUTO) 4.33 MIL/uL (4.00-5.50); RED CELL DISTRIBUTION WIDTH 13.3 % (11.0-15.5); WHITE BLOOD COUNT (AUTO) 7.9 K/uL (4.8-10.8)
[2020-08-26 22:43] LABS: INR 0.93 (0.85-1.15); PARTIAL THROMBOPLASTIN TIME 23.6 SEC (26.3-35.5); PROTHROMBIN TIME 10.1 SEC (9.6-11.6)
[2020-08-26 22:57] LABS: B-TYPE NATRIURETIC PEPTIDE 40 pg/mL (0-100)
[2020-08-26 23:16] LABS: CREATININE 0.9 mg/dL (0.5-1.5); POTASSIUM 3.7 mmol/L (3.5-5.1)
[2020-08-26 23:21] LABS: ALBUMIN 3.9 g/dL (3.5-5.0); BILIRUBIN,TOTAL 0.4 mg/dL (0.2-1.0); TOTAL PROTEIN, SERUM 6.6 g/dL (6.0-8.3)
[2020-08-26] MEDS ORDERED: METHYLPREDNISOLONE SOD SUCC 40MG/ML 1ML ONE (23:25)
[2020-08-26] MEDS ORDERED: IPRATROPIUM/ALBUTEROL SULFATE 3 ML SOLUTION IH ONE (23:26)
[2020-08-26] MEDS ORDERED: ALBUTEROL INHALER 90MCG/INH IH ONE (23:39)
[2020-08-27] MEDS ORDERED: CEFTRIAXONE SODIUM 1 GM ONE (01:14)
[2020-08-27] MEDS ORDERED: AZITHROMYCIN 500MG+NS 250ML 250 ML IV ONE (01:14)
[2020-08-27] MEDS ORDERED: IPRATROPIUM/ALBUTEROL SULFATE 3 ML SOLUTION IH PRN (02:30)
[2020-08-27] MEDS: CEFTRIAXONE SODIUM 1 GM IVP SCH (03:00)
[2020-08-27] MEDS: AZITHROMYCIN 500MG+NS 250ML 250 ML IV SCH (04:00)
[2020-08-27 05:19] LABS: BASOPHILS % (AUTO) 0.4 % (0.0-5.0); EOSINOPHILS % (AUTO) 0.3 % (0.0-8.0); HEMATOCRIT 43.7 % (36-48); LYMPHOCYTES % (AUTO) 12.1 % (21.0-51.0); MEAN CORPUSCULAR HEMOGLOBIN 32.6 pg (27.0-33.0); MEAN CORPUSCULAR HGB CONC 32.7 g/dL (32.0-36.0); MEAN CORPUSCULAR VOLUME 99.8 fL (79-99); MONOCYTES % (AUTO) 0.5 % (3.0-13.0); NEUTROPHILS % (AUTO) 86.3 % (40.0-77.0); PLATELET COUNT (AUTO) 156 K/uL (130-400); RED BLOOD CELL COUNT(AUTO) 4.38 MIL/uL (4.00-5.50); RED CELL DISTRIBUTION WIDTH 13.1 % (11.0-15.5); WHITE BLOOD COUNT (AUTO) 7.3 K/uL (4.8-10.8)
[2020-08-27 05:26] LABS: CREATININE 0.9 mg/dL (0.5-1.5); POTASSIUM 3.5 mmol/L (3.5-5.1)
[2020-08-27 05:31] LABS: ALBUMIN 4.1 g/dL (3.5-5.0); BILIRUBIN,TOTAL 0.3 mg/dL (0.2-1.0)
[2020-08-27] MEDS ORDERED: ACETAMINOPHEN 325 MG TAB PO PRN (07:00)
[2020-08-27] MEDS: INSULIN R PO SS1 SQ SCH ×4 (07:30→21:00)
[2020-08-27] MEDS: IPRATROPIUM/ALBUTEROL SULFATE 3 ML SOLUTION IH SCH ×4 (09:00→21:00)
[2020-08-27] MEDS: ENOXAPARIN SODIUM 40 MG/0.4 ML SYRINGE SQ SCH (09:00)
[2020-08-27] MEDS: METHYLPREDNISOLONE SOD SUCC 125MG/2ML VIAL IVP SCH (09:00)
[2020-08-27] MEDS ORDERED: ENOXAPARIN SODIUM 40 MG/0.4 ML SYRINGE SQ ONE (09:53)
[2020-08-27] MEDS ORDERED: METHYLPREDNISOLONE SOD SUCC 40MG/ML 1ML ONE (09:53)
[2020-08-28] MEDS: CEFTRIAXONE SODIUM 1 GM IVP SCH (03:00)
[2020-08-28] MEDS: AZITHROMYCIN 500MG+NS 250ML 250 ML IV SCH (04:00)
[2020-08-28] MEDS: INSULIN R PO SS1 SQ SCH ×4 (07:30→21:00)
[2020-08-28] MEDS: IPRATROPIUM/ALBUTEROL SULFATE 3 ML SOLUTION IH SCH ×5 (09:00→23:24)
[2020-08-28] MEDS: METHYLPREDNISOLONE SOD SUCC 125MG/2ML VIAL IVP SCH (09:00)
[2020-08-28] MEDS: ENOXAPARIN SODIUM 40 MG/0.4 ML SYRINGE SQ SCH (09:00)
[2020-08-28 09:02] LABS: BASOPHILS % (AUTO) 0.1 % (0.0-5.0); EOSINOPHILS % (AUTO) 0.1 % (0.0-8.0); HEMATOCRIT 42.4 % (36-48); LYMPHOCYTES % (AUTO) 21.6 % (21.0-51.0); MEAN CORPUSCULAR HEMOGLOBIN 32.9 pg (27.0-33.0); MEAN CORPUSCULAR HGB CONC 32.5 g/dL (32.0-36.0); MEAN CORPUSCULAR VOLUME 101.2 fL (79-99); MONOCYTES % (AUTO) 6.7 % (3.0-13.0); NEUTROPHILS % (AUTO) 71.3 % (40.0-77.0); PLATELET COUNT (AUTO) 167 K/uL (130-400); RED BLOOD CELL COUNT(AUTO) 4.19 MIL/uL (4.00-5.50); RED CELL DISTRIBUTION WIDTH 13.2 % (11.0-15.5)
[2020-08-28 09:15] LABS: CREATININE 0.8 mg/dL (0.5-1.5); POTASSIUM 4.3 mmol/L (3.5-5.1)
[2020-08-28 09:19] LABS: ALBUMIN 3.9 g/dL (3.5-5.0); BILIRUBIN,TOTAL 0.6 mg/dL (0.2-1.0); TOTAL PROTEIN, SERUM 6.8 g/dL (6.0-8.3)
[2020-08-28] MEDS ORDERED: METHYLPREDNISOLONE SOD SUCC 40MG/ML 1ML ONE (09:25)
[2020-08-28] MEDS ORDERED: ENOXAPARIN SODIUM 40 MG/0.4 ML SYRINGE SQ ONE (09:25)
[2020-08-28 18:34] LABS: APPEARANCE,URINE Clear (CLEAR); BILIRUBIN,URINE Negative (NEGATIVE); COLOR,URINE Yellow (YELLOW); GLUCOSE, URINE (UA) Negative (NEGATIVE); KETONES,URINE Negative (NEGATIVE); LEUKOCYTE ESTERASE ,URINE Negative (NEGATIVE); NITRATE,URINE Negative (NEGATIVE); OCCULT BLOOD,URINE Negative (NEGATIVE); PROTEIN,URINE Negative (NEGATIVE)
[2020-08-28 22:09] VITALS: BP 140/94
[2020-08-28] MEDS: GUAIFENESIN SUGAR-FREE 100 MG/5 ML UDCUP PO PRN (23:23)
[2020-08-29 00:05] VITALS: BP 155/95
[2020-08-29] MEDS: AZITHROMYCIN 500MG+NS 250ML 250 ML IV SCH (03:04)
[2020-08-29] MEDS: CEFTRIAXONE SODIUM 1 GM IVP SCH (03:04)
[2020-08-29 03:23] VITALS: BP 145/79
[2020-08-29] MEDS: INSULIN R PO SS1 SQ SCH ×4 (06:04→21:00)
[2020-08-29] MEDS: IPRATROPIUM/ALBUTEROL SULFATE 3 ML SOLUTION IH SCH ×4 (06:07→22:10)
[2020-08-29 08:00] VITALS: BP 135/74
[2020-08-29] MEDS: METHYLPREDNISOLONE SOD SUCC 125MG/2ML VIAL IVP SCH (08:49)
[2020-08-29] MEDS: ENOXAPARIN SODIUM 40 MG/0.4 ML SYRINGE SQ SCH (08:49)
[2020-08-29 12:00] VITALS: BP 123/65
[2020-08-29 16:00] VITALS: BP 111/70
[2020-08-29] MEDS ORDERED: PANT40TA55 PO (18:40)
[2020-08-29] MEDS ORDERED: TRAZ-187 PO (18:40)
[2020-08-29] MEDS ORDERED: RISP1TAB71 PO (18:40)
[2020-08-29] MEDS ORDERED: LORA2TAB80 PO (18:40)
[2020-08-29] MEDS ORDERED: HYDR25TA PO (18:40)
[2020-08-29 20:00] VITALS: BP 154/84
[2020-08-30] VITALS (9 sets, daily range): BP systolic 128–177; BP diastolic 64–122
[2020-08-30] MEDS: CEFTRIAXONE SODIUM 1 GM IVP SCH (02:52)
[2020-08-30] MEDS: AZITHROMYCIN 500MG+NS 250ML 250 ML IV SCH (02:52)
[2020-08-30] MEDS: LABETALOL HCL 5 MG/ML 20ML VIAL IV SCH (03:45)
[2020-08-30] MEDS ORDERED: LABETALOL HCL 5 MG/ML 20ML VIAL IV ONE (03:49)
[2020-08-30] MEDS: IPRATROPIUM/ALBUTEROL SULFATE 3 ML SOLUTION IH SCH ×4 (06:25→21:01)
[2020-08-30] MEDS: INSULIN R PO SS1 SQ SCH ×4 (07:30→21:00)
[2020-08-30] MEDS: METHYLPREDNISOLONE SOD SUCC 125MG/2ML VIAL IVP SCH ×3 (08:56→13:28)
[2020-08-30] MEDS: ENOXAPARIN SODIUM 40 MG/0.4 ML SYRINGE SQ SCH (08:56)
[2020-08-30] MEDS: LORAZEPAM 1 MG TABLET PO PRN ×2 (13:28→21:03)
[2020-08-30] MEDS ORDERED: METHYLPREDNISOLONE SOD SUCC 40MG/ML 1ML ONE (19:20)
[2020-08-30] MEDS ORDERED: RISPERIDONE 1 MG TABLET PO SCH (21:00)
[2020-08-30] MEDS: GUAIFENESIN SUGAR-FREE 100 MG/5 ML UDCUP PO PRN (21:05)
[2020-08-30] MEDS: METHYLPREDNISOLONE SOD SUCC 40MG/ML 1ML IVP SCH (21:07)
[2020-08-31 00:40] VITALS: BP 139/82
[2020-08-31] MEDS: CEFTRIAXONE SODIUM 1 GM IVP SCH (02:39)
[2020-08-31] MEDS: AZITHROMYCIN 500MG+NS 250ML 250 ML IV SCH (02:39)
[2020-08-31] MEDS: LABETALOL HCL 5 MG/ML 20ML VIAL IV SCH (03:45)
[2020-08-31 04:00] VITALS: BP 149/90
[2020-08-31 04:43] LABS: MEAN CORPUSCULAR HEMOGLOBIN 32.7 pg (27.0-33.0); MEAN CORPUSCULAR HGB CONC 33.5 g/dL (32.0-36.0); MEAN CORPUSCULAR VOLUME 97.5 fL (79-99); RED BLOOD CELL COUNT(AUTO) 4.41 MIL/uL (4.00-5.50); RED CELL DISTRIBUTION WIDTH 13.1 % (11.0-15.5); WHITE BLOOD COUNT (AUTO) 9.1 K/uL (4.8-10.8)
[2020-08-31 04:59] LABS: CARBON DIOXIDE 24 mmol/L (21-32); CHLORIDE 107 mmol/L (101-111); CREATININE 0.7 mg/dL (0.5-1.5); GLOMERULAR FILTR. RATE CALC 87 mL/min (>60); GLUCOSE,RANDOM 159 mg/dL (70-105); PHOSPHORUS 3.3 mg/dL (2.5-4.9); POTASSIUM 3.6 mmol/L (3.5-5.1); SODIUM SERUM 142 mmol/L (136-145); UREA NITROGEN, BLOOD 19 mg/dL (7-18)
[2020-08-31] MEDS: INSULIN R PO SS1 SQ SCH ×3 (06:00→17:36)
[2020-08-31] MEDS: IPRATROPIUM/ALBUTEROL SULFATE 3 ML SOLUTION IH SCH ×3 (06:36→14:05)
[2020-08-31] MEDS: METHYLPREDNISOLONE SOD SUCC 40MG/ML 1ML IVP SCH (08:41)
[2020-08-31] MEDS: ENOXAPARIN SODIUM 40 MG/0.4 ML SYRINGE SQ SCH (08:43)
[2020-08-31] MEDS ORDERED: TRAZODONE HCL 100 MG TABLET PO SCH (09:00)
[2020-08-31] MEDS ORDERED: HYDROCHLOROTHIAZIDE 25 MG TABLET PO SCH (09:00)
[2020-08-31] MEDS ORDERED: PANTOPRAZOLE SODIUM 40 MG TABLET.DR PO SCH (09:00)
[2020-08-31 10:13] VITALS: BP 163/84
[2020-08-31 12:43] VITALS: BP 191/103
[2020-08-31] MEDS ORDERED: IPRA3AMP24 IH (15:04)
[2020-08-31] MEDS ORDERED: PRED20TA3 PO (15:09)
[2020-08-31] MEDS ORDERED: AZIT250T9 PO (15:09)
[2020-08-31] MEDS ORDERED: CEPH500B PO (15:09)
[2020-08-31 17:52] VITALS: BP 170/87
[2020-08-31] MEDS ORDERED: LABETALOL 20 MG/4 ML DISP.SYRIN IV SCH (18:15)
== END 2020-08-31 18:50 | disposition home or self-care (01) | DRG 189 ==
LOC: EDH 21:35 → EDHIP 08-27 00:34 → 2DH 08-28 20:55 → 3CH 08-30 18:17
PROVIDERS: ADMIT Internal Medicine; ATTEND Internal Medicine
DX: J96.21 Acute and chronic respiratory failure with hypoxia (principal); J44.1 Chronic obstructive pulmonary disease with (acute) exacerbation; E11.9 Type 2 diabetes mellitus without complications; I10 Essential (primary) hypertension; Z20.828 Contact with and (suspected) exposure to other viral communicable diseases; E78.5 Hyperlipidemia, unspecified; Z66 Do not resuscitate; F32.9 Major depressive disorder, single episode, unspecified; F17.200 Nicotine dependence, unspecified, uncomplicated; I25.10 Atherosclerotic heart disease of native coronary artery without angina pectoris; F41.9 Anxiety disorder, unspecified; R53.81 Other malaise; I49.5 Sick sinus syndrome; Z91.81 History of falling
CPT/HCPCS: 36415; 71045; 80048; 80053; 81003; 82550; 82948; 83735; 83880; 84100; 84145; 84484; 85025; 85027; 85378; 85610; 85730; 87426; 93005; 94640; 94664; 94760; 97039; G0378; J0456; J0696; J1650; J1815; J2920; J2930; J3490; U0003